=== PATIENT | male | born 1960 | race Two or more races ===

== ENCOUNTER 2019-02-15 18:43 | Observation (INO) | payer OTHER ==
[2019-02-15] MEDS ORDERED: SODIUM CHLORIDE 0.9% 1,000 ML IV STA ×2 (19:02→20:31)
[2019-02-15] MEDS ORDERED: DICYCLOMINE 10 MG/ML 2 ML AMP IM STA (19:02)
[2019-02-15] MEDS ORDERED: ONDANSETRON 4 MG/2 ML VIAL IVP STA (19:02)
[2019-02-15] MEDS ORDERED: PANTOPRAZOLE 40 MG/10 ML VIAL IVP STA (19:02)
--- NOTE | 2019-02-15 19:06 | ED ---
Abdominal Pain HPI - General Chief Complaint: Abdominal Pain Stated Complaint: HEARTBURN, NAUSEA Time Seen by Provider: 02/15/19 18:54 Source: patient Mode of arrival: ambulatory Limitations: no limitations - History of Present Illness Initial Comments: Patient is a 58-year-old male with history of diabetes is presenting to emergency Department with chief complaint of abdominal pain nausea vomiting. Patient reports over the last 2 days he has developed an epigastric, burning abdominal pain that appears to be exacerbated postprandially. Patient reports since last night he developed constant nausea with multiple episodes of vomiting but no diarrhea. Patient denies any increased urgency or frequency or dysuria. Patient denies hematuria, hematochezia or melena. Patient reports he was scheduled to have a colonoscopy 1 year ago but never could make the appointment. Patient denies any night sweats or fevers or chills. Patient reports he rece ntly lost his insurance and has not been taken his diabetic medication. - Related Data Home Medications Medication Instructions Recorded Confirmed Atenolol 100 mg PO DAILY 02/15/19 02/15/19 Indomethacin [Indocin] 50 mg PO BID 02/15/19 02/15/19 Insulin Glargine,Hum.rec.anlog 48 unit SQ HS 02/15/19 02/15/19 [Basaglar Kwikpen U-100] Lisinopril 30 mg PO DAILY 02/15/19 02/15/19 Nortriptyline [Pamelor] 50 mg PO HS 02/15/19 02/15/19 Simvastatin [Zocor] 40 mg PO HS 02/15/19 02/15/19 cloNIDine HCL [Catapres] 0.2 mg PO BID 02/15/19 02/15/19 Allergies Allergy/AdvReac Type Severity Reaction Status Date / Time prochlorperazine AdvReac CONVULSIONS Verified 02/15/19 20:57 [From Compazine] Review of Systems ROS Statement: Those systems with pertinent positive or pertinent negative responses have been documented in the HPI. ROS Other: All systems not noted in ROS Statement are negative. Past Medical History Past Medical History: Diabetes Mellitus, GERD/Reflux, Hypertension History of Any Multi-Drug Resistant Organisms: None Reported Past Surgical History: No Surgical Hx Reported Past Psychological History: No Psychological Hx Reported Smoking Status: Current some day smoker Past Alcohol Use History: None Reported Past Drug Use History: Marijuana General Exam Limitations: no limitations General appearance: alert, in no apparent distress Head exam: Present: atraumatic, normocephalic, normal inspection Eye exam: Present: normal appearance Pupils: Present: normal accommodation ENT exam: Present: normal exam, mucous membranes moist Neck exam: Present: normal inspection, full ROM Respiratory exam: Present: normal lung sounds bilaterally Cardiovascular Exam: Present: normal rhythm, tachycardia, normal heart sounds GI/Abdominal exam: Present: soft, tenderness (Epigastric), normal bowel sounds. Absent: distended, guarding, rebound, rigid, other (Negative Neff sign, negative McBurney point tenderness.) Extremities exam: Present: normal inspection, full ROM, normal capillary refill Back exam: Present: normal inspection, full ROM. Absent: tenderness Neurological exam: Present: alert, oriented X3 Psychiatric exam: Present: normal affect, normal mood Skin exam: Present: warm, dry, intact, normal color Course Vital Signs 02/15/19 02/15/19 18:47 21:15 Temperature 98.2 F Pulse Rate 119 H 100 Respiratory 18 18 Rate Blood Pressure 187/101 164/77 O2 Sat by Pulse 95 95 Oximetry Medical Decision Making - Medical Decision Making Patient is a 58-year-old male with history of type 2 diabetes presenting to the emergency department with a chief complaint of nausea vomiting abdominal pain. On exam patient has mild to moderate epigastric tenderness, negative Neff or McBurney point tenderness. I suspect the epigastric pain to be related due to repetitive vomiting episodes. Patient has leukocytosis which I suspect to be s econdary to the vomiting. UA is indicative of plus for ketones and glucose. Patient appears to be dehydrated. 2 L of fluids given. Patient given Zofran initially which he states there was no improvement in nausea. Patient was given Phenergan additionally. Patient also given 4 mg of regular insulin. On reevaluation patient reports somewhat of an improvement although he is not able to keep any fluids down. Patient will be admitted for intractable nausea and vomiting. Case discussed with physician. Admitting physician is Dr. Casper. - Lab Data Result diagrams: 02/15/19 19:18 02/15/19 19:18 Lab Results 02/15/19 02/15/19 02/15/19 Range/Units 19:18 19:18 19:41 WBC 18.0 H (3.8-10.6) k/uL RBC 5.13 (4.30-5.90) m/uL Hgb 16.2 (13.0-17.5) gm/dL Hct 46.1 (39.0-53.0) % MCV 89.9 (80.0-100.0) fL MCH 31.6 (25.0-35.0) pg MCHC 35.2 (31.0-37.0) g/dL RDW 12.6 (11.5-15.5) % Plt Count 265 (150-450) k/uL Neutrophils % 93 % Lymphocytes % 4 % Monocytes % 3 % Eosinophils % 0 % Basophils % 0 % Neutrophils # 16.7 H (1.3-7.7) k/uL Lymphocytes # 0.6 L (1.0-4.8) k/uL Monocytes # 0.6 (0-1.0) k/uL Eosinophils # 0.0 (0-0.7) k/uL Basophils # 0.0 (0-0.2) k/uL Sodium 143 (137-145) mmol/L Potassium 3.8 (3.5-5.1) mmol/L Chloride 95 L (98-107) mmol/L Carbon Dioxide 30 (22-30) mmol/L Anion Gap 18 mmol/L BUN 14 (9-20) mg/dL Creatinine 0.92 (0.66-1.25) mg/dL Est GFR (CKD-EPI)AfAm >90 (>60 ml/min/1.73 sqM) Est GFR (CKD-EPI)NonAf >90 (>60 ml/min/1.73 sqM) Glucose 275 H (74-99) mg/dL Calcium 10.8 H (8.4-10.2) mg/dL Total Bilirubin 1.2 (0.2-1.3) mg/dL AST 20 (17-59) U/L ALT 27 (21-72) U/L Alkaline Phosphatase 126 (38-126) U/L Total Protein 8.5 H (6.3-8.2) g/dL Albumin 5.1 H (3.5-5.0) g/dL Amylase 46 (30-110) U/L Lipase 45 (23-300) U/L Urine Color Yellow Urine Appearance Cloudy (Clear) Urine pH 6.5 (5.0-8.0) Ur Specific [place] 1.023 (1.001-1.035) Urine Protein 2+ H (Negative) Urine Glucose (UA) 4+ H (Negative) Urine Ketones 4+ H (Negative) Urine Blood Negative (Negative) Urine Nitrite Negative (Negative) Urine Bilirubin Negative (Negative) Urine Urobilinogen <2.0 (<2.0) mg/dL Ur Leukocyte Esterase Negative (Negative) Urine RBC 1 (0-5) /hpf Urine WBC 1 (0-5) /hpf Ur Squamous Epith Cells 1 (0-4) /hpf Amorphous Sediment Rare H (None) /hpf Urine Bacteria Rare H (None) /hpf Urine Mucus Rare H (None) /hpf Disposition Clinical Impression: Intractable vomiting with nausea, Dehydration Disposition: ADMITTED IP TO THIS [facility] Condition: Stable Instructions (If sedation given, give patient instructions): Dehydration (ED) Additional Instructions: Patient will be admitted Is patient prescribed a controlled substance at d/c from ED?: No Referrals: Frederick Camejo MD [Primary Care Provider] - 1-2 days Time of Disposition: 22:08
[2019-02-15 19:26] LABS: Basophils % (A) 0 %; Eosinophils % (A) 0 %; HCT 46.1 % (39.0-53.0); HGB 16.2 gm/dL (13.0-17.5); Lymphocytes # (A) 0.6 k/uL (1.0-4.8); Lymphocytes % (A) 4 %; MCH 31.6 pg (25.0-35.0); MCHC 35.2 g/dL (31.0-37.0); MCV 89.9 fL (80.0-100.0); Mean Platelet Volume 7.9; Monocytes # (A) 0.6 k/uL (0-1.0); Monocytes % (A) 3 %; Neutrophils # (A) 16.7 k/uL (1.3-7.7); Neutrophils % (A) 93 %; Platelet Count 265 k/uL (150-450); RBC 5.13 m/uL (4.30-5.90); RDW 12.6 % (11.5-15.5)
[2019-02-15 19:37] LABS: ALT 27 U/L (21-72); AST 20 U/L (17-59); African American GFR (CKD) >90 (>60 ml/min/1.73 sqM); Albumin 5.1 g/dL (3.5-5.0); Alkaline Phosphatase 126 U/L (38-126); Amylase 46 U/L (30-110); Anion Gap 18 mmol/L; Blood Urea Nitrogen 14 mg/dL (9-20); Calcium 10.8 mg/dL (8.4-10.2); Carbon Dioxide 30 mmol/L (22-30); Chloride 95 mmol/L (98-107); Glucose 275 mg/dL (74-99); Non-African American GFR(CKD) >90 (>60 ml/min/1.73 sqM); Potassium 3.8 mmol/L (3.5-5.1); Sodium 143 mmol/L (137-145); Total Bilirubin 1.2 mg/dL (0.2-1.3); Total Protein 8.5 g/dL (6.3-8.2)
[2019-02-15 19:54] LABS: Amorphous Sediment,Urine Rare /hpf; Appearance,Urine Cloudy (Clear); Bacteria,Urine Rare /hpf; Bilirubin,Urine Negative (Negative); Blood,Urine Negative (Negative); Color,Urine Yellow; Glucose,Urine (UA) 4+ (Negative); Leukocyte Esterase,Urine Negative (Negative); Mucus,Urine Rare /hpf; Nitrite,Urine Negative (Negative); PH, Urine 6.5 (5.0-8.0); Protein,Urine 2+ (Negative); RBC,Urine 1 /hpf (0-5); Specific Gravity,Urine 1.023 (1.001-1.035); Squamous Epithelial Cell,Urine 1 /hpf (0-4); Urobilinogen,Urine <2.0 mg/dL (<2.0); WBC,Urine 1 /hpf (0-5)
[2019-02-15 19:55] LABS: Ketones,Urine 4+ (Negative)
[2019-02-15] MEDS ORDERED: INSULIN REGULAR 100 UNIT/ML VIAL IV ONE (20:10)
[2019-02-15] MEDS ORDERED: PROMETHAZINE INJ 25 MG in SODIUM CHLORIDE 0.9% 50 ML IVPB STA (20:11)
--- NOTE | 2019-02-15 21:18 | US ---
EXAMINATION TYPE: US abdomen limited DATE OF EXAM: 02/15/2019 COMPARISON: NONE CLINICAL HISTORY: epigastric/rug abd pain. N/V. No surgeries. EXAM MEASUREMENTS: Liver Length: 18.2 cm Gallbladder Wall: 0.2 cm CHD: 0.3 cm Right Kidney: 10.6 x 5.2 x 5.7 cm Very limited exam due to overlying bowel gas Pancreas: Obscured by bowel gas Liver: enlarged and coarse. Scanned through ribs due to overlying bowel gas. Left lobe not visuali zed due to overlying bowel gas. Gallbladder: Possible polyps, best seen supine at GB fold= 0.4 cm and 0.4 cm Evidence for sonographic Neff's sign: neg CBD: Obscured by overlying bowel gas Right Kidney: No hydronephrosis or masses seen IMPRESSION: No gallstones or dilated ducts. Possible small gallbladder polyps. These measure less giles n 5 mm. No dilated ducts.
[2019-02-15] MEDS ORDERED: MORPHINE SULFATE 4 MG/ML SYRINGE IV PRN (22:08)
[2019-02-15] MEDS ORDERED: NALOXONE 0.4 MG/ML 1 ML VIAL IV PRN (22:08)
[2019-02-15] MEDS: SODIUM CHLORIDE 0.9% 1,000 ML IV SCH (22:42)
[2019-02-15] MEDS: ONDANSETRON 4 MG/2 ML VIAL IVP SCH (23:49)
[2019-02-16] MEDS: SODIUM CHLORIDE 0.9% 1,000 ML IV SCH ×5 (03:32→23:46)
[2019-02-16] MEDS: ONDANSETRON 4 MG/2 ML VIAL IVP SCH ×4 (03:32→15:53)
[2019-02-16 06:57] LABS: Glucose,Whole Blood 142 mg/dL (75-99)
[2019-02-16] MEDS: HYDROcodone/APAP 5-325MG 1 EACH TAB PO PRN ×2 (07:44→13:18)
[2019-02-16 11:21] LABS: Glucose,Whole Blood 212 mg/dL (75-99)
[2019-02-16] MEDS: LISINOPRIL 10 MG TAB PO SCH (13:18)
[2019-02-16] MEDS: ATENOLOL 50 MG TAB PO SCH (13:19)
[2019-02-16] MEDS: IOPAMIDOL CONTRAST (ORAL USE) VIAL PO PRN ×2 (14:59→15:47)
[2019-02-16] MEDS: INDOMETHACIN 25 MG CAP PO SCH ×2 (15:48→20:45)
[2019-02-16] MEDS: cloNIDine HCL 0.2 MG TAB PO SCH ×2 (15:49→20:45)
[2019-02-16] MEDS ORDERED: ONDANSETRON 4 MG/2 ML VIAL IVP PRN (15:53)
--- NOTE | 2019-02-16 17:17 | CT ---
EXAMINATION TYPE: CT abdomen pelvis w con DATE OF EXAM: 02/16/2019 COMPARISON: None HISTORY: Fever and vomiting CT DLP: 1232.7 mGycm Automated exposure control for dose reduction was used. TECHNIQUE: Helical acquisition of images was performed from the lung bases through the pelvis. CONTRAST: Performed with Oral Contrast and with IV Contrast, patient injected with 100 mL of Isovue 300. FINDINGS: There is some patchy atelectasis at the lung bases. Heart size is normal. There is no pericardial eff usion. There is small hiatal hernia. Liver and spleen appear normal. Bile ducts are not dilated. There is no evidence of pancreatic mass. Gallbladder appears normal. Bile ducts are not dilated. There is no adrenal mass. Kidneys show satisfactory contrast opacification. There is no hydronephrosi s. Bladder distends smoothly. There is no inguinal hernia. There is no free fluid in the pelvis. Ther e is no mesenteric edema. There is no ascites or free air. Appendix appears normal. There is no sign of a bowel obstruction. Lumbar vertebra have normal alignment. There is degenerative disc space narro wing throughout the lumbar spine. There is no compression fracture. There is multilevel endplate spur formation and multilevel lumbar spinal stenosis. There is no retroperitoneal adenopathy. The delayed images show normal renal excretion. IMPRESSION: THERE IS SOME PATCHY ATELECTASIS AT THE LUNG BASES. NO ACUTE ABNORMALITY WITHIN THE ABDOMEN PELVIS. ENLARGED 6 CM PROSTATE. MULTILEVEL LUMBAR SPINAL STENOSIS.
[2019-02-16 17:20] LABS: Glucose,Whole Blood 197 mg/dL (75-99)
[2019-02-16 19:25] LABS: Glucose,Whole Blood 282 mg/dL (75-99)
[2019-02-16] MEDS: INSULIN ASPART (NovoLOG) 100 UNIT/ML VIAL SQ SCH (20:46)
[2019-02-16] MEDS ORDERED: INSULIN DETEMIR (LEVEMIR) 100 UNIT/ML SYR SQ SCH (21:00)
[2019-02-16] MEDS ORDERED: NORTRIPTYLINE 25 MG CAP PO SCH (21:00)
[2019-02-16] MEDS ORDERED: ATORVASTATIN 20 MG TAB PO SCH (21:00)
--- NOTE | 2019-02-16 22:37 | P.HPIM ---
History of Present Illness H&P Date: 02/16/19 Chief Complaint: Epigastric pain History of presenting complaint: This is a pleasant 58-year-old patient of Dr. Camejo. Chronic stable medical conditions include diabetes, GERD, hypertension, gout. Patient is a long- standing history of GERD and heartburn. Patient's symptoms have been progressively getting worse at least over last 5 months. Has increasing epigastric pain and heartburn going up in the chest. Often times she vomited feels acid eating the chest. Has not had EGD in the past. Dislocation patient had feeling of acid routine vomiting. Her 24 hours. Decided to come in. No fever no chills. Does a lot of discomfort in the epigastric area. Patient did drink significant alcohol the past stopped about 10 years ago. Patient also did chew tobacco in the past. Denies any black stools. No prior diagnosis of peptic ulcer disease. No loss of appetite. No weight loss. Patient does take indomethacin for his gout. Review of systems: GEN.: Tired EYES: None HEENT: None NECK: None RESPIRATORY: None CARDIOVASCULAR: No precordial pain GASTROINTESTINAL: As above GENITOURINARY: None MUSCULOSKELETAL: None LYMPHATICS: None HEMATOLOGICAL: None PSYCHIATRY: None NEUROLOGICAL: None Past medical history: Include Diabetes, GERD, hypertension, gout Social history: Patient drank alcohol for close to 22 years significant amount of stopped about 10 years ago. Marijuana occasionally. Lives alone. 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 Did chew tobacco in the past. Family history: Reviewed, noncontributory to presentation Physical examination: VITAL SIGNS: 98.2, 119, 18, 160/77, 95% on room air GENERAL: [BMI 30.1, laying in bed, not in distress. EYES: Pupils equal. Conjunctiva normal. HEENT: External appearance of nose and ears normal, oral cavity grossly normal. NECK: JVD not raised; masses not palpable. HEART: First and second heart sounds are normal; no edema. LUNGS: Respiratory rate normal; clear to auscultation. ABDOMEN: Soft, some epigastric tenderness, no guarding or rigidity, liver spleen not palpable, no masses palpable. PSYCH: Alert and oriented x3; mood and affect normal. NEUROLOGICAL: Cranial nerves grossly intact; no facial asymmetry, power and sensation grossly intact. LYMPHATICS: No lymph nodes palpable in the axilla and neck INVESTIGATIONS, reviewed in the clinical context: White count 18 hemoglobin 16.2 potassium 3.8 crit 0.9 to UA positive for protein glucose ketones Abdominal ultrasound showed possible gallbladder polyp. Otherwise unremarkable Assessment: -This is a patient long-standing history of progressive symptoms of GERD heartburn and vomiting with acidity going on for at least more progressive last 5 months. Now with episodes of vomiting with feeling acidity with epigastric pain. Patient does take indomethacin regularly and has had significant alcohol intake in the past. Patient is also overweight. Patient's symptoms are compatible with gastritis esophagitis severe reflux. No obvious evidence of infection. Abdominal examination is nonsurgical. -Diabetes mellitus type 2 chronically on insulin -Essential hypertension -Hyperlipidemia -Chronic gout Plan: Computed tomography scan of the abdomen with contrast will be ordered. Highly doubt this to be a surgical abdomen. We'll start the patient on PPI. Stopped today and said. Lifestyle measures was discussed at length with the patient. Patient will need outpatient EGD. Lovenox for DVT prophylaxis. Patient should be able to call tomorrow. Past Medical History Past Medical History: Diabetes Mellitus, GERD/Reflux, Hypertension History of Any Multi-Drug Resistant Organisms: None Reported Past Surgical History: No Surgical Hx Reported Past Psychological History: No Psychological Hx Reported Smoking Status: Current some day smoker Past Alcohol Use History: None Reported Past Drug Use History: Marijuana Medications and Allergies Home Medications Medication Instructions Recorded Confirmed Type Atenolol 100 mg PO DAILY 02/15/19 02/15/19 History Indomethacin [Indocin] 50 mg PO BID 02/15/19 02/15/19 History Insulin Glargine,Hum.rec.anlog 44 unit SQ HS 02/15/19 02/16/19 History [Basaglar Kwikpen U-100] Lisinopril 30 mg PO DAILY 02/15/19 02/15/19 History Nortriptyline [Pamelor] 50 mg PO HS 02/15/19 02/15/19 History Simvastatin [Zocor] 40 mg PO HS 02/15/19 02/15/19 History cloNIDine HCL [Catapres] 0.2 mg PO BID 02/15/19 02/15/19 History Allergies Allergy/AdvReac Type Severity Reaction Status Date / Time prochlorperazine AdvReac CONVULSIONS Verified 02/15/19 20:57 [From Compazine] Physical Exam Vitals: Vital Signs Temp Pulse Pulse Resp BP BP Pulse Ox 02/16/19 05:00 97.2 F L 99 18 146/73 94 L 02/15/19 23:00 97.8 F 97 18 151/80 93 L 02/15/19 22:45 100 18 179/90 96 02/15/19 21:15 100 18 164/77 95 02/15/19 18:47 98.2 F 119 H 18 187/101 95 Intake and Output 02/15/19 02/16/19 02/16/19 22:59 06:59 14:59 Intake Total 1400 Balance 1400 Intake: Intake, IV Titration 1400 Amount Sodium Chloride 0.9% 1, 1400 000 ml @ 200 mls/hr IV . Q5H [facility] Rx#:[id number] Other: Voiding Method Toilet Weight 95.254 kg Results CBC & Chem 7: 02/15/19 19:18 02/15/19 19:18 Labs: Abnormal Lab Results - Last 24 Hours (Table) 02/15/19 02/15/19 02/15/19 Range/Units 19:18 19:18 19:41 WBC 18.0 H (3.8-10.6) k/uL Neutrophils # 16.7 H (1.3-7.7) k/uL Lymphocytes # 0.6 L (1.0-4.8) k/uL Chloride 95 L (98-107) mmol/L Glucose 275 H (74-99) mg/dL POC Glucose (mg/dL) (75-99) mg/dL Calcium 10.8 H (8.4-10.2) mg/dL Total Protein 8.5 H (6.3-8.2) g/dL Albumin 5.1 H (3.5-5.0) g/dL Urine Protein 2+ H (Negative) Urine Glucose (UA) 4+ H (Negative) Urine Ketones 4+ H (Negative) Amorphous Sediment Rare H (None) /hpf Urine Bacteria Rare H (None) /hpf Urine Mucus Rare H (None) /hpf 02/16/19 Range/Units 06:55 WBC (3.8-10.6) k/uL Neutrophils # (1.3-7.7) k/uL Lymphocytes # (1.0-4.8) k/uL Chloride (98-107) mmol/L Glucose (74-99) mg/dL POC Glucose (mg/dL) 142 H (75-99) mg/dL Calcium (8.4-10.2) mg/dL Total Protein (6.3-8.2) g/dL Albumin (3.5-5.0) g/dL Urine Protein (Negative) Urine Glucose (UA) (Negative) Urine Ketones (Negative) Amorphous Sediment (None) /hpf Urine Bacteria (None) /hpf Urine Mucus (None) /hpf Thrombosis Risk Factor Assmnt - Choose All That Apply Any of the Below Risk Factors Present?: Yes Each Factor Represents 1 point: Age 41-60 years, Obesity (BMI >25) Other Risk Factors: No Other congenital or acquired thrombophilia - If yes, enter type in comment: No Thrombosis Risk Factor Assessment Total Risk Factor Score: 2 Thrombosis Risk Factor Assessment Level: Low Risk
[2019-02-16] MEDS: ENOXAPARIN 40 MG/0.4 ML SYRINGE SQ SCH (23:46)
[2019-02-16] MEDS: PANTOPRAZOLE 40 MG TABLET PO SCH (23:46)
[2019-02-17 00:46] LABS: Hemoglobin A1C 11.2 % (4.0-6.0)
[2019-02-17] MEDS: SODIUM CHLORIDE 0.9% 1,000 ML IV SCH ×2 (05:10→08:58)
[2019-02-17 06:47] LABS: Glucose,Whole Blood 76 mg/dL (75-99)
[2019-02-17] MEDS: INSULIN ASPART (NovoLOG) 100 UNIT/ML VIAL SQ SCH ×2 (06:51→13:14)
[2019-02-17] MEDS: PANTOPRAZOLE 40 MG TABLET PO SCH (07:36)
[2019-02-17] MEDS: LISINOPRIL 10 MG TAB PO SCH (07:36)
[2019-02-17] MEDS: ATENOLOL 50 MG TAB PO SCH (07:36)
[2019-02-17] MEDS: cloNIDine HCL 0.2 MG TAB PO SCH (07:36)
[2019-02-17] MEDS: ENOXAPARIN 40 MG/0.4 ML SYRINGE SQ SCH (07:37)
[2019-02-17 10:55] VITALS: BMI 30.1
[2019-02-17] MEDS: HYDROcodone/APAP 5-325MG 1 EACH TAB PO PRN (11:38)
[2019-02-17 11:52] LABS: Glucose,Whole Blood 243 mg/dL (75-99)
[2019-02-17 13:01] VITALS: BP 118/78; PULSE 59; RESP 16; TEMP 96.8
--- NOTE | 2019-02-17 21:36 | P.DS ---
Providers Date of admission: 02/15/19 21:38 Expected date of discharge: 02/17/19 Attending physician: Diony Casper Primary care physician: Frederick Bashir [facility] Course: Chief Complaint: Epigastric pain Hospital course: This is a pleasant 58-year-old patient of Dr. Camejo. Chronic stable medical conditions include diabetes, GERD, hypertension, gout. Patient is a long- standing history of GERD and heartburn. Patient's symptoms have been progressively getting worse at least over last 5 months. Has increasing epigastric pain and heartburn going up in the chest. Often times she vomited feels acid eating the chest. Has not had EGD in the past. Dislocation patient had feeling of acid routine vomiting. Her 24 hours. Decided to come in. No fever no chills. Does a lot of discomfort in the epigastric area. Patient did drink significant alcohol the past stopped about 10 years ago. Patient also did chew tobacco in the past. Denies any black stools. No prior diagnosis of peptic ulcer disease. No loss of appetite. No weight loss. Patient does take indomethacin for his gout.abdominal ultrasound was unremarkable. Computed tomography scan of the abdomen was unremarkable. Patient responded well to PPIs. Patient have an outpatient EGD. Care was discussed at length with the patient. NSAIDs are not to be taken. Physical examination: VITAL SIGNS: 98.2, 56, 17, 103/64, 95% room air GENERAL: [BMI 30.1, laying in bed, comfortable EYES: Pupils equal. Conjunctiva normal. HEENT: External appearance of nose and ears normal, oral cavity grossly normal. NECK: JVD not raised; masses not palpable. HEART: First and second heart sounds are normal; no edema. LUNGS: Respiratory rate normal; clear to auscultation. ABDOMEN: Soft, minimal-epigastric tenderness, no guarding or rigidity, liver spleen not palpable, no masses palpable. PSYCH: Alert and oriented x3; mood and affect normal. INVESTIGATIONS, reviewed in the clinical context: White count 18 hemoglobin 16.2 potassium 3.8 crit 0.9 to UA positive for protein glucose ketones Abdominal ultrasound showed possible gallbladder polyp. Otherwise unremarkable Assessment: -epigastric pain likely due to worsening of gastritis and/or esophagitis. Patient also on NSAIDs contributing. -Diabetes mellitus type 2 chronically on insulin -Essential hypertension -Hyperlipidemia -Chronic gout disposition: Home Patient Condition at Discharge: Stable Plan - Discharge Summary Discharge Rx Participant: No New Discharge Prescriptions: New Omeprazole [PriLOSEC] 20 mg PO AC-BID #60 cap Continue cloNIDine HCL [Catapres] 0.2 mg PO BID Simvastatin [Zocor] 40 mg PO HS Lisinopril 30 mg PO DAILY Atenolol 100 mg PO DAILY Insulin Glargine,Hum.rec.anlog [Basaglar Kwikpen U-100] 44 unit SQ HS Nortriptyline [Pamelor] 50 mg PO HS Discontinued Indomethacin [Indocin] 50 mg PO BID Discharge Medication List Atenolol 100 mg PO DAILY 02/15/19 [History] Insulin Glargine,Hum.rec.anlog [Basaglar Kwikpen U-100] 44 unit SQ HS 02/15/19 [History] Lisinopril 30 mg PO DAILY 02/15/19 [History] Nortriptyline [Pamelor] 50 mg PO HS 02/15/19 [History] Simvastatin [Zocor] 40 mg PO HS 02/15/19 [History] cloNIDine HCL [Catapres] 0.2 mg PO BID 02/15/19 [History] Omeprazole [PriLOSEC] 20 mg PO AC-BID #60 cap 02/17/19 [Rx] Follow up Appointment(s)/Referral(s): Frederick Camejo MD [Primary Care Provider] - 1-2 days Jamil Solis MD [STAFF PHYSICIAN] - 1 Week (EGD) Patient Instructions/Handouts: Dehydration (ED) Activity/Diet/Wound Care/Special Instructions: avoid NSAIDS Discharge Disposition: HOME SELF-CARE
== END 2019-02-17 13:15 | disposition home or self-care (01) ==
LOC: EC 18:43 → 3NMEDONC 21:38
PROVIDERS: ADMIT Hospitalist; ATTEND Hospitalist
DX: R10.13 Epigastric pain (principal); E11.9 Type 2 diabetes mellitus without complications; I10 Essential (primary) hypertension; M1A.9XX0 Chronic gout, unspecified, without tophus (tophi); R11.2 Nausea with vomiting, unspecified; K21.9 Gastro-esophageal reflux disease without esophagitis; F17.200 Nicotine dependence, unspecified, uncomplicated; E66.9 Obesity, unspecified; Z68.30 Body mass index [BMI] 30.0-30.9, adult; T38.3X6A Underdosing of insulin and oral hypoglycemic [antidiabetic] drugs, initial encounter; Z91.120 Patient's intentional underdosing of medication regimen due to financial hardship; Z79.899 Other long term (current) drug therapy; Z79.4 Long term (current) use of insulin; Z79.1 Long term (current) use of non-steroidal anti-inflammatories (NSAID); Z88.8 Allergy status to other drugs, medicaments and biological substances
CPT/HCPCS: 96376 ×2; 96361 ×3; 96372 ×3; 96365; 96366; 96375; 99285; 36415; 80053; 82150; 83690; 85025; 81001; 83036; 76705; 74177; G0378 ×3; J0500; J2550; J2405 ×2; J1650 ×2; C9113; Q9967

== ENCOUNTER 2020-05-26 18:53 | Inpatient (IN) | payer OTHER ==
[2020-05-26] MEDS ORDERED: SODIUM CHLORIDE 0.9% 2,000 ML IV STA (20:38)
[2020-05-26] MEDS ORDERED: ONDANSETRON 4 MG/2 ML VIAL IVP STA (20:38)
[2020-05-26] MEDS ORDERED: PANTOPRAZOLE 40 MG/10 ML VIAL IVP STA (20:38)
--- NOTE | 2020-05-26 20:54 | ED ---
Nausea/Vomiting/Diarrhea HPI - General Chief complaint: Nausea/Vomiting/Diarrhea Stated complaint: poss low blood sugar/blood in vomit Time Seen by Provider: 05/26/20 20:33 Source: patient, RN notes reviewed Mode of arrival: ambulatory Limitations: no limitations - History of Present Illness Initial comments: 59-year-old male presents emergency Department chief complaint abdominal pain, nausea vomiting. Patient states that this started last night states started with increased reflux. Patient states he is type II diabetic on insulin. Patient states she's had checked his blood sugar in 2 days. Patient states they started noticing spots of blood in his emesis. Patient went of upper abdominal pain. Patient states he had similar episode like this one year ago and felt that he had some peptic ulcer disease. Denies any melena or hematochezia. No fevers chills cough congestion denies any upper back pain, low back pain no dysuria - Related Data Home Medications Medication Instructions Recorded Confirmed Nortriptyline [Pamelor] 50 mg PO HS 02/15/19 02/15/19 Simvastatin [Zocor] 40 mg PO HS 02/15/19 02/15/19 cloNIDine HCL [Catapres] 0.2 mg PO BID 02/15/19 02/15/19 lisinopriL 30 mg PO DAILY 02/15/19 02/15/19 Allergies Allergy/AdvReac Type Severity Reaction Status Date / Time prochlorperazine AdvReac CONVULSIONS Verified 05/26/20 22:28 [From Compazine] Review of Systems ROS Statement: Those systems with pertinent positive or pertinent negative responses have been documented in the HPI. ROS Other: All systems not noted in ROS Statement are negative. Past Medical History Past Medical History: Diabetes Mellitus, GERD/Reflux, Hypertension History of Any Multi-Drug Resistant Organisms: None Reported Past Surgical History: No Surgical Hx Reported Past Psychological History: No Psychological Hx Reported Smoking Status: Never smoker Past Alcohol Use History: Occasional Past Drug Use History: Marijuana General Exam Limitations: no limitations General appearance: alert, in no apparent distress Head exam: Present: atraumatic, normocephalic, normal inspection Eye exam: Present: normal appearance, PERRL, EOMI. Absent: scleral icterus, conjunctival injection, periorbital swelling ENT exam: Present: normal oropharynx, mucous membranes dry, TM's normal bilaterally. Absent: mucous membranes moist Neck exam: Present: normal inspection. Absent: tenderness, meningismus, lymphadenopathy Respiratory exam: Present: normal lung sounds bilaterally. Absent: respiratory distress, wheezes, rales, rhonchi, stridor Cardiovascular Exam: Present: normal rhythm, tachycardia, normal heart sounds. Absent: systolic murmur, diastolic murmur, rubs, gallop, clicks GI/Abdominal exam: Present: soft, tenderness (Moderate epigastric), normal bowel sounds. Absent: distended, guarding, rebound, rigid Back exam: Absent: CVA tenderness (R), CVA tenderness (L) Neurological exam: Present: alert, oriented X3 Skin exam: Present: warm, dry, intact, normal color. Absent: rash Course Vital Signs 05/26/20 05/26/20 19:10 22:00 Temperature 97.5 F L Pulse Rate 135 H 120 H Respiratory 18 18 Rate Blood Pressure 142/90 199/102 O2 Sat by Pulse 96 90 L Oximetry Medical Decision Making - Medical Decision Making 51-year-old male presented for nausea vomiting. Patient's found to be hyperglycemia with a blood glucose of 699, with anion gap But not acidotic. PH is 7.4 to BE HIS BLOOD GAS. PATIENT DOES NOT HAVE ANY OBVIOUS SOURCE FOR INFECTION. CT ABDOMEN AND PELVIS WAS OBTAINED. PATIENT WILL BE ADMITTED FOR IV FLUID HYDRATION, INSULIN. - Lab Data Result diagrams: 05/26/20 20:47 05/26/20 20:47 Lab Results 05/26/20 05/26/20 05/26/20 Range/Units 20:47 20:47 20:47 WBC 22.6 H (3.8-10.6) k/uL RBC 5.98 H (4.30-5.90) m/uL Hgb 17.6 H (13.0-17.5) gm/dL Hct 54.7 H (39.0-53.0) % MCV 91.4 (80.0-100.0) fL MCH 29.4 (25.0-35.0) pg MCHC 32.2 (31.0-37.0) g/dL RDW 13.5 (11.5-15.5) % Plt Count 305 (150-450) k/uL MPV 10.0 Neutrophils % 93 % Lymphocytes % 3 % Monocytes % 3 % Eosinophils % 0 % Basophils % 0 % Neutrophils # 21.1 H (1.3-7.7) k/uL Lymphocytes # 0.7 L (1.0-4.8) k/uL Monocytes # 0.7 (0-1.0) k/uL Eosinophils # 0.0 (0-0.7) k/uL Basophils # 0.1 (0-0.2) k/uL VBG pH (7.31-7.41) VBG pCO2 (37-51) mmHg VBG HCO3 (24-28) mmol/L Sodium 137 (137-145) mmol/L Potassium 4.6 (3.5-5.1) mmol/L Chloride 84 L (98-107) mmol/L Carbon Dioxide 26 (22-30) mmol/L Anion Gap 27 mmol/L BUN 25 H (9-20) mg/dL Creatinine 1.25 (0.66-1.25) mg/dL Est GFR (CKD-EPI)AfAm 73 (>60 ml/min/1.73 sqM) Est GFR (CKD-EPI)NonAf 64 (>60 ml/min/1.73 sqM) Glucose 699 H* (74-99) mg/dL Plasma Lactic Acid Richard 7.5 H* (0.7-2.0) mmol/L Calcium 13.2 H* (8.4-10.2) mg/dL Total Bilirubin 1.3 (0.2-1.3) mg/dL AST 28 (17-59) U/L ALT 40 (4-49) U/L Alkaline Phosphatase 175 H (38-126) U/L Troponin I (0.000-0.034) ng/mL Total Protein 8.8 H (6.3-8.2) g/dL Albumin 5.3 H (3.5-5.0) g/dL Amylase <30 L (30-110) U/L Lipase 58 (23-300) U/L Acetone, Qual Positive (Negative) 05/26/20 05/26/20 Range/Units 20:47 20:47 WBC (3.8-10.6) k/uL RBC (4.30-5.90) m/uL Hgb (13.0-17.5) gm/dL Hct (39.0-53.0) % MCV (80.0-100.0) fL MCH (25.0-35.0) pg MCHC (31.0-37.0) g/dL RDW (11.5-15.5) % Plt Count (150-450) k/uL MPV Neutrophils % % Lymphocytes % % Monocytes % % Eosinophils % % Basophils % % Neutrophils # (1.3-7.7) k/uL Lymphocytes # (1.0-4.8) k/uL Monocytes # (0-1.0) k/uL Eosinophils # (0-0.7) k/uL Basophils # (0-0.2) k/uL VBG pH 7.43 H (7.31-7.41) VBG pCO2 39 (37-51) mmHg VBG HCO3 26 (24-28) mmol/L Sodium (137-145) mmol/L Potassium (3.5-5.1) mmol/L Chloride (98-107) mmol/L Carbon Dioxide (22-30) mmol/L Anion Gap mmol/L BUN (9-20) mg/dL Creatinine (0.66-1.25) mg/dL Est GFR (CKD-EPI)AfAm (>60 ml/min/1.73 sqM) Est GFR (CKD-EPI)NonAf (>60 ml/min/1.73 sqM) Glucose (74-99) mg/dL Plasma Lactic Acid Richard (0.7-2.0) mmol/L Calcium (8.4-10.2) mg/dL Total Bilirubin (0.2-1.3) mg/dL AST (17-59) U/L ALT (4-49) U/L Alkaline Phosphatase (38-126) U/L Troponin I <0.012 (0.000-0.034) ng/mL Total Protein (6.3-8.2) g/dL Albumin (3.5-5.0) g/dL Amylase (30-110) U/L Lipase (23-300) U/L Acetone, Qual (Negative) Critical Care Time Critical Care Time: Yes Total Critical Care Time: 35 Critical Care Time: Total 35 minutes were used for initial evaluation, ordering of labs EKG CT fluids and insulin. Patient started on insulin drip, fluid bolus was given. Patient's pH is 7.42, not acidotic, patient discussed with admitting physician. Disposition Clinical Impression: Intractable vomiting with nausea, Dehydration, Hyperglycemia due to type 2 diabetes mellitus, Lactic acidosis, Hyperosmolar hyperglycemic state (HHS), Leukocytosis Disposition: ADMITTED IP TO THIS HOSP Condition: Serious Referrals: Frederick Camejo MD [Primary Care Provider] - 1-2 days
[2020-05-26 21:05] LABS: VBG PH 7.43 (7.31-7.41)
[2020-05-26 21:07] LABS: Basophils # (A) 0.1 k/uL (0-0.2); Basophils % (A) 0 %; Eosinophils % (A) 0 %; HCT 54.7 % (39.0-53.0); HGB 17.6 gm/dL (13.0-17.5); Lymphocytes # (A) 0.7 k/uL (1.0-4.8); Lymphocytes % (A) 3 %; MCH 29.4 pg (25.0-35.0); MCHC 32.2 g/dL (31.0-37.0); MCV 91.4 fL (80.0-100.0); Monocytes # (A) 0.7 k/uL (0-1.0); Monocytes % (A) 3 %; Neutrophils # (A) 21.1 k/uL (1.3-7.7); Neutrophils % (A) 93 %; Platelet Count 305 k/uL (150-450); RBC 5.98 m/uL (4.30-5.90); RDW 13.5 % (11.5-15.5); WBC 22.6 k/uL (3.8-10.6)
[2020-05-26 21:11] LABS: AST 28 U/L (17-59); African American GFR (CKD) 73 (>60 ml/min/1.73 sqM); Albumin 5.3 g/dL (3.5-5.0); Alkaline Phosphatase 175 U/L (38-126); Anion Gap 27 mmol/L; Blood Urea Nitrogen 25 mg/dL (9-20); Carbon Dioxide 26 mmol/L (22-30); Chloride 84 mmol/L (98-107); Lipase 58 U/L (23-300); Non-African American GFR(CKD) 64 (>60 ml/min/1.73 sqM); Potassium 4.6 mmol/L (3.5-5.1); Sodium 137 mmol/L (137-145); Total Bilirubin 1.3 mg/dL (0.2-1.3); Total Protein 8.8 g/dL (6.3-8.2)
[2020-05-26 21:19] LABS: ALT 40 U/L (4-49)
[2020-05-26 21:23] LABS: Calcium 13.2 mg/dL (8.4-10.2); Glucose 699 mg/dL (74-99)
[2020-05-26] MEDS ORDERED: INSULIN REGULAR BOLUS (FROM DRIP BAG) IV ONE (21:23)
[2020-05-26 21:24] LABS: Amylase <30 U/L (30-110)
[2020-05-26] MEDS: SODIUM CHLORIDE 0.9% 1,000 ML IV SCH ×2 (21:43→22:52)
[2020-05-26] MEDS: INSULIN REGULAR 100 UNIT in SODIUM CHLORIDE 0.9% 100 ML IV SCH (21:43)
--- NOTE | 2020-05-26 22:21 | CT ---
EXAMINATION TYPE: CT abdomen pelvis w con DATE OF EXAM: 05/26/2020 COMPARISON: 02/16/2019 HISTORY: Vomiting blood. CT DLP: 1283.6 mGycm Automated exposure control for dose reduction was used. CONTRAST: Performed with IV Contrast, patient injected with 100ml mL of Isovue 300. Images obtained from the diaphragm to the floor the pelvis with IV contrast. Lung bases are clear of consolidation. There is diffuse fatty infiltration of the liver. Gallbladder is intact. Stomach is large. There is no focal defect. Spleen and pancreas appear normal. The bile du cts are not dilated. Pancreas is relatively small. There is no adrenal mass. Kidneys show satisfactory contrast opacification. There is no hydronephrosi s. Ureters are not dilated. There is no retroperitoneal adenopathy. Bladder distends smoothly. There is no inguinal hernia. There is no free fluid in the pelvis. There is no mesenteric edema. There is no ascites or free air. I see no evidence of a bowel obstructi on. There is no sign of thickened appendix. Appendix not clearly seen. The lumbar vertebra have normal alignment. There is mild disc space narrowing with spur formation. Th ere is no lumbar compression fracture. The bony pelvis is intact. The hip joints are intact. There is some degenerative cyst formation in the right acetabulum. Prostate measures 6.5 cm. IMPRESSION: Fatty infiltration of the liver. There is clearing of the atelectasis at the lung bases compared to o ld exam.
[2020-05-26] MEDS ORDERED: ONDANSETRON 4 MG/2 ML VIAL IVP PRN (22:36)
[2020-05-26] MEDS ORDERED: NALOXONE 0.4 MG/ML 1 ML VIAL IV PRN (22:36)
[2020-05-26] MEDS ORDERED: HYDROmorphone 0.5 MG/0.5 ML SYRINGE IVP STA (22:44)
[2020-05-26 22:56] LABS: Glucose,Whole Blood 503 mg/dL (75-99)
[2020-05-26 23:13] LABS: Appearance,Urine Clear (Clear); Bilirubin,Urine Negative (Negative); Blood,Urine Negative (Negative); Color,Urine Light Yellow; Glucose,Urine (UA) 4+ (Negative); Leukocyte Esterase,Urine Negative (Negative); Nitrite,Urine Negative (Negative); Protein,Urine Negative (Negative); Specific Gravity,Urine 1.031 (1.001-1.035); Urobilinogen,Urine <2.0 mg/dL (<2.0)
[2020-05-26] MEDS ORDERED: cloNIDine HCL 0.1 MG TAB PO STA (23:35)
[2020-05-26 23:48] LABS: Glucose,Whole Blood 532 mg/dL (75-99)
[2020-05-26 23:55] LABS: Ketones,Urine 2+ (Negative)
[2020-05-27 00:50] LABS: Glucose,Whole Blood 447 mg/dL (75-99)
[2020-05-27 01:58] LABS: Glucose,Whole Blood 332 mg/dL (75-99)
[2020-05-27 02:29] LABS: Glucose,Whole Blood 317 mg/dL (75-99)
[2020-05-27] MEDS ORDERED: D5-0.45% NACL WITH KCL 20MEQ/L 1,000 ML IV SCH (02:30)
[2020-05-27 03:11] LABS: Glucose,Whole Blood 332 mg/dL (75-99)
[2020-05-27 04:10] LABS: Glucose,Whole Blood 241 mg/dL (75-99)
[2020-05-27] MEDS: SODIUM CHLORIDE 0.9% 1,000 ML IV SCH ×4 (04:12→17:00)
[2020-05-27 04:55] LABS: Glucose,Whole Blood 195 mg/dL (75-99)
[2020-05-27 05:02] LABS: African American GFR (CKD) >90 (>60 ml/min/1.73 sqM); Anion Gap 11 mmol/L; Blood Urea Nitrogen 26 mg/dL (9-20); Calcium 11.1 mg/dL (8.4-10.2); Carbon Dioxide 31 mmol/L (22-30); Chloride 99 mmol/L (98-107); Glucose 248 mg/dL (74-99); Non-African American GFR(CKD) 78 (>60 ml/min/1.73 sqM); Phosphorus 2.7 mg/dL (2.5-4.5); Potassium 4.2 mmol/L (3.5-5.1); Sodium 141 mmol/L (137-145)
[2020-05-27 05:54] LABS: Glucose,Whole Blood 213 mg/dL (75-99)
[2020-05-27] MEDS: INSULIN REGULAR 100 UNIT in SODIUM CHLORIDE 0.9% 100 ML IV SCH (06:16)
[2020-05-27 07:01] LABS: Glucose,Whole Blood 138 mg/dL (75-99)
[2020-05-27 07:42] LABS: Glucose,Whole Blood 138 mg/dL (75-99)
[2020-05-27 08:28] LABS: African American GFR (CKD) >90 (>60 ml/min/1.73 sqM); Anion Gap 10 mmol/L; Blood Urea Nitrogen 24 mg/dL (9-20); Carbon Dioxide 31 mmol/L (22-30); Chloride 100 mmol/L (98-107); Glucose 151 mg/dL (74-99); Non-African American GFR(CKD) 88 (>60 ml/min/1.73 sqM); Potassium 4.6 mmol/L (3.5-5.1); Sodium 141 mmol/L (137-145)
[2020-05-27] MEDS: METOPROLOL TARTRATE 50 MG TAB PO SCH ×2 (08:48→20:28)
[2020-05-27] MEDS: PANTOPRAZOLE 40 MG/10 ML VIAL IV SCH ×2 (08:48→20:28)
[2020-05-27] MEDS: lisinopriL 10 MG TAB PO SCH (08:49)
[2020-05-27] MEDS: allopurinoL 100 MG TAB PO SCH (08:49)
[2020-05-27] MEDS: cloNIDine HCL 0.2 MG TAB PO SCH ×2 (08:49→20:28)
[2020-05-27] MEDS: INSULIN DETEMIR (LEVEMIR) 100 UNIT/ML SYR SQ SCH (09:53)
[2020-05-27] MEDS: ACETAMINOPHEN TAB 325 MG TAB PO PRN ×2 (11:29→20:31)
[2020-05-27 12:23] LABS: Glucose,Whole Blood 344 mg/dL (75-99)
[2020-05-27] MEDS: INSULIN ASPART (NovoLOG) 100 UNIT/ML VIAL SQ SCH ×3 (12:23→20:28)
[2020-05-27 12:29] LABS: African American GFR (CKD) >90 (>60 ml/min/1.73 sqM); Anion Gap 11 mmol/L; Blood Urea Nitrogen 23 mg/dL (9-20); Carbon Dioxide 26 mmol/L (22-30); Chloride 98 mmol/L (98-107); Glucose 282 mg/dL (74-99); Non-African American GFR(CKD) >90 (>60 ml/min/1.73 sqM); Potassium 4.3 mmol/L (3.5-5.1); Sodium 135 mmol/L (137-145)
[2020-05-27 14:29] VITALS: BMI 29.5
--- NOTE | 2020-05-27 14:47 | P.CNPUL ---
History of Present Illness Consult date: 05/27/20 Requesting physician: Diony Casper Reason for consult: other (Acute DKA.) Chief complaint: Abdominal pain and nausea and vomiting History of present illness: This is a 59-year-old white male with history of hypertension, depression, dyslipidemia, and diabetes. Patient has been very noncompliant with his medications for diabetes, not taking his insulin as he should. Presented to the ER yesterday with 2 days history of nausea vomiting and abdominal pain. Patient was noted to have significantly elevated blood sugar, positive ketones, and significant anion gap. Patient was admitted, placed on DKA protocol, given fluid boluses in the ER, and this consult was initiated. Patient denies any cough, no fever, no chills, no hemoptysis, denies any dysuria frequency or urgency. Patient clearly stated to me that he has not been taking his medications. His labs showed evidence of leukocytosis with WBC count of 22.6. Renal functioning is abnormal with a BUN of 25 creatinine of 1.25. Blood sugar was 699 on admission. Anion gap was 27. And ketones were positive. Coronal virus PCR was negative patient was admitted to the ICU, and I was asked to see him on consultation. This morning the patient seems to be doing much better, his anion gap has closed, patient will be placed on Levemir insulin and will be placed on NovoLog insulin subcu. According to sliding scale Review of Systems Constitutional: Negative. HEENT: Negative. Pulmonary: Negative. GI: As noted in HPI. Genitourinary: Negative. Musko skeletal: Negative. Endocrine: As noted in HPI. Hematologic: Negative. Neurologic: Negative. Psychiatric: Negative. Skin: Negative. Past Medical History Past Medical History: Diabetes Mellitus, GERD/Reflux, Hypertension History of Any Multi-Drug Resistant Organisms: None Reported Past Surgical History: No Surgical Hx Reported Past Anesthesia/Blood Transfusion Reactions: No Reported Reaction Past Psychological History: No Psychological Hx Reported Smoking Status: Never smoker Past Alcohol Use History: Occasional Past Drug Use History: Marijuana - Past Family History Father Additional Family Medical History / Comment(s): Bowel resection with colostomy. Mother Family Medical History: CVA/TIA, Hypertension, Myocardial Infarction (AR) Medications and Allergies Home Medications Medication Instructions Recorded Confirmed Type Nortriptyline [Pamelor] 50 mg PO HS 02/15/19 05/26/20 History Simvastatin [Zocor] 40 mg PO HS 02/15/19 05/26/20 History cloNIDine HCL [Catapres] 0.2 mg PO BID 02/15/19 05/26/20 History lisinopriL 30 mg PO DAILY 02/15/19 05/26/20 History Insulin Glargine,Hum.rec.anlog 29 unit SQ DAILY 05/26/20 05/26/20 History [Lantus Solostar] Metoprolol Tartrate [Lopressor] 50 mg PO BID 05/26/20 05/26/20 History allopurinoL [Zyloprim] 100 mg PO DAILY 05/26/20 05/26/20 History metFORMIN HCL [Glucophage] 1,000 mg PO BID 05/26/20 05/26/20 History Allergies Allergy/AdvReac Type Severity Reaction Status Date / Time prochlorperazine AdvReac CONVULSIONS Verified 05/26/20 22:28 [From Compazine] Physical Exam Vitals: Vital Signs Temp Pulse Resp BP Pulse Ox 05/27/20 13:00 81 18 136/82 92 L 05/27/20 12:00 98.3 F 80 18 123/81 92 L 05/27/20 11:00 80 14 156/98 93 L 05/27/20 10:00 77 22 166/96 94 L 05/27/20 09:00 100 14 167/99 96 05/27/20 08:00 98.8 F 98 13 163/87 95 05/27/20 07:00 98 11 L 160/97 94 L 05/27/20 06:00 101 H 21 148/97 92 L 05/27/20 05:00 96 15 148/93 94 L 05/27/20 04:00 98.1 F 98 12 139/85 93 L 05/27/20 03:00 102 H 18 150/89 95 05/27/20 02:00 106 H 14 162/99 94 L 05/27/20 01:00 115 H 7 L 175/103 93 L 05/27/20 00:16 98.3 F 116 H 16 167/102 92 L 05/26/20 23:58 97.5 F L 118 H 18 154/100 92 L 05/26/20 23:39 118 H 18 164/111 92 L 05/26/20 23:00 120 H 18 189/114 95 05/26/20 22:00 120 H 18 199/102 90 L 05/26/20 19:10 97.5 F L 135 H 18 142/90 96 Intake and Output 05/26/20 05/27/20 05/27/20 22:59 06:59 14:59 Intake Total 0985.751 1804.017 Output Total 775 Balance 845.498 4544.017 Intake: IV 800 D5-0.45% NaCl with KCl 300 20Meq/l 1,000 ml @ 150 mls/hr IV .Q6H40M [facility] Rx# :[id number] Sodium Chloride 0.9% 1, 500 000 ml @ 100 mls/hr IV . Q10H [facility] Rx#:[id number] Intake, IV Titration 1382.260 158.017 Amount D5-0.45% NaCl with KCl 300 150 20Meq/l 1,000 ml @ 150 mls/hr IV .Q6H40M [facility] Rx# :[id number] Insulin Regular 100 unit 82.260 8.017 In Sodium Chloride 0.9% 100 ml @ 0.1 UNITS/KG/HR 9.621 mls/hr IV .[id number] [facility] Rx#:[id number] Sodium Chloride 0.9% 1, 1000 000 ml @ 200 mls/hr IV . Q5H [facility] Rx#:[id number] Oral 100 Output: Urine 775 Other: Voiding Method Urinal Urinal # Voids 2 Weight 95.254 kg 93.2 kg Physical Exam: Revealed 59-year-old white male in no distress. Head: Atraumatic, normocephalic. HEENT:[Neck is supple.] [No neck masses.] [No thyromegaly.] [No JVD.] Chest: [Clear throughout, no crackles, no rhonchi, no wheezes.] Cardiac Exam: [Normal S1 and S2, no S3 gallop, no murmur.] Abdomen: [Soft, nontender, no megaly, no rebound, no guarding, normal bowel sounds.] Extremities: [No clubbing, no edema, no cyanosis.] Neurological Exam: [No focal neurologic deficit.] Alert and oriented 3. Psychiatric: Normal mood, affect and normal mental status examination. Skin: No rashes. Results - Laboratory Findings CBC and BMP: 05/26/20 20:47 05/27/20 12:02 Abnormal lab findings: Abnormal Labs 05/26/20 05/26/20 05/26/20 20:47 20:47 20:47 WBC 22.6 H RBC 5.98 H Hgb 17.6 H Hct 54.7 H Neutrophils # 21.1 H Lymphocytes # 0.7 L VBG pH Sodium Chloride 84 L Carbon Dioxide BUN 25 H Glucose 699 H* POC Glucose (mg/dL) Osmolality Plasma Lactic Acid Richard Calcium 13.2 H* Alkaline Phosphatase 175 H Total Protein 8.8 H Albumin 5.3 H Amylase <30 L Urine Glucose (UA) 4+ H Urine Ketones 2+ H 05/26/20 05/26/20 05/26/20 20:47 20:47 20:47 WBC RBC Hgb Hct Neutrophils # Lymphocytes # VBG pH 7.43 H Sodium Chloride Carbon Dioxide BUN Glucose POC Glucose (mg/dL) Osmolality 329 H* Plasma Lactic Acid Richard 7.5 H* Calcium Alkaline Phosphatase Total Protein Albumin Amylase Urine Glucose (UA) Urine Ketones 05/26/20 05/26/20 05/27/20 22:53 23:47 00:25 WBC RBC Hgb Hct Neutrophils # Lymphocytes # VBG pH Sodium Chloride Carbon Dioxide BUN Glucose POC Glucose (mg/dL) 503 H 532 H Osmolality Plasma Lactic Acid Richard 2.3 H* Calcium Alkaline Phosphatase Total Protein Albumin Amylase Urine Glucose (UA) Urine Ketones 05/27/20 05/27/20 05/27/20 00:47 01:56 02:27 WBC RBC Hgb Hct Neutrophils # Lymphocytes # VBG pH Sodium Chloride Carbon Dioxide BUN Glucose POC Glucose (mg/dL) 447 H 332 H 317 H Osmolality Plasma Lactic Acid Richard Calcium Alkaline Phosphatase Total Protein Albumin Amylase Urine Glucose (UA) Urine Ketones 05/27/20 05/27/20 05/27/20 03:09 03:59 04:09 WBC RBC Hgb Hct Neutrophils # Lymphocytes # VBG pH Sodium Chloride Carbon Dioxide 31 H BUN 26 H Glucose 248 H POC Glucose (mg/dL) 332 H 241 H Osmolality Plasma Lactic Acid Richard Calcium 11.1 H Alkaline Phosphatase Total Protein Albumin Amylase Urine Glucose (UA) Urine Ketones 05/27/20 05/27/20 05/27/20 04:54 05:52 07:00 WBC RBC Hgb Hct Neutrophils # Lymphocytes # VBG pH Sodium Chloride Carbon Dioxide BUN Glucose POC Glucose (mg/dL) 195 H 213 H 138 H Osmolality Plasma Lactic Acid Richard Calcium Alkaline Phosphatase Total Protein Albumin Amylase Urine Glucose (UA) Urine Ketones 05/27/20 05/27/20 05/27/20 07:41 07:53 12:02 WBC RBC Hgb Hct Neutrophils # Lymphocytes # VBG pH Sodium 135 L Chloride Carbon Dioxide 31 H BUN 24 H 23 H Glucose 151 H 282 H POC Glucose (mg/dL) 138 H Osmolality Plasma Lactic Acid Richard Calcium Alkaline Phosphatase Total Protein Albumin Amylase Urine Glucose (UA) Urine Ketones 05/27/20 12:21 WBC RBC Hgb Hct Neutrophils # Lymphocytes # VBG pH Sodium Chloride Carbon Dioxide BUN Glucose POC Glucose (mg/dL) 344 H Osmolality Plasma Lactic Acid Richard Calcium Alkaline Phosphatase Total Protein Albumin Amylase Urine Glucose (UA) Urine Ketones - Diagnostic Findings Additional studies: CT abdomen and pelvis showed fatty infiltration of the liver otherwise unremarkable. Assessment and Plan Assessment: Impression: Acute diabetic ketoacidosis. Secondary to noncompliance with insulin. Noncompliance with his medications. Benign essential hypertension. Dyslipidemia. Fatty infiltration of the liver. GERD without esophagitis. Recommendation: Transition patient to Levemir insulin Transition patient to NovoLog subcu insulin Continue IV fluids Advanced diet as tolerated/ADA diet. Consider transfusing the patient out of the ICU to a regular medical floor today. Possible discharge planning in the next 24 hours. Patient advised to be compliant with his medications/insulin at home. Time with Patient: Greater than 30
[2020-05-27 15:09] LABS: Hemoglobin A1C 13.4 % (4.0-6.0)
[2020-05-27 16:55] LABS: Glucose,Whole Blood 239 mg/dL (75-99)
[2020-05-27 19:43] LABS: Glucose,Whole Blood 269 mg/dL (75-99)
--- NOTE | 2020-05-27 20:24 | P.HPIM ---
History of Present Illness H&P Date: 05/27/20 Chief Complaint: Nausea vomiting History of presenting complaint: This is a pleasant 59-year-old patient who follows with Radha Gill. Chronic stable medical conditions include GERD, hypertension, hyperuricemia. 4 days ago patient was in [place] with his girlfriend. They're to fall out and he did this agreement. 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 For 3 days he did not have insulin and Eating on the way in [facility]. When he came back home he found that his son was in [facility]. And that messed up his yard. On Tuesday night patient started vomiting and vomited all night. And yesterday decided to come down to the ER. Patient is found to have a blood glucose of 699, and found to be in diabetic ket oacidosis. Patient does take Lantus at home. Patient is put on IV fluids insulin drip admitted to the ICU. The DKA This morning patient feels a bit better. No decrease appetite. No fever no chills. No respiratory urinary symptoms. Was taken off insulin drip this morning. Review of systems: GEN.: Tired EYES: None HEENT: None NECK: None RESPIRATORY: None CARDIOVASCULAR: None GASTROINTESTINAL: As above GENITOURINARY: None MUSCULOSKELETAL: None LYMPHATICS: None HEMATOLOGICAL: None PSYCHIATRY: Anxious] NEUROLOGICAL: None Past medical history to include: Diabetes, GERD, hypertension, hyperlipidemia Social history: Patient lives alone. 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 No smoking. Alcohol occasionally. Sometimes in the past. Physical examination: VITAL SIGNS: 97.5, 135, 18, 142/90, 90% room air-upon presentation GENERAL: BMI 29.5, reclining in bed, tired awake. EYES: Pupils equal. Conjunctiva normal. HEENT: External appearance of nose and ears normal, oral cavity grossly normal. NECK: JVD not raised; masses not palpable. HEART: First and second heart sounds are normal; no edema. LUNGS: Respiratory rate normal; clear to auscultation. ABDOMEN: Soft, nontender, liver spleen not palpable, no masses palpable. PSYCH: Alert and oriented x3; mood and affect slightly anxiousl. NEUROLOGICAL: Cranial nerves grossly intact; no facial asymmetry, power and sensation grossly intact. LYMPHATICS: No lymph nodes palpable in the axilla and neck INVESTIGATIONS, reviewed in the clinical context: May 27: Potassium 4.3 creatinine 0.83 blood glucose 22 Admitting exam: WBC 22.6 hemoglobin 17.6 platelets 305 potassium 4.6 creatinine 1.25 blood glucose 699 serum osmolality 329 lactic acid 7.5 calcium 13.2 Serum acetone positive Coronavirus [PCF] not detected EKG tracing personally reviewed by me-normal sinus rhythm with nonspecific ST segment changes Computed tomography scan of the abdomen pelvis with contrast: Fatty infiltration of the liver. Assessment and plan: -Diabetic ketoacidosis. This is a patient was not taking his insulin for 3 days by his been driving up from [place]. Started on IV fluids and insulin drip. -Diabetes mellitus type 2, chronically on insulin, uncontrolled with hyperglycemia -Essential hypertension, continue with Lopressor lisinopril, Catapres -Hyperlipidemia continue with Zocor -Hyperuricemia continues allopurinol -Lactic acidosis type II from underlying DKA This morning patient was taken off insulin drip. Put on Levemir 50 units. Accu-Cheks are being followed. Home medications were resumed. Encouraged to increase oral intake. Lovenox for DVT prophylaxis. We will also add aspirin 81 mg a day for GI prophylaxis. Past Medical History Past Medical History: Diabetes Mellitus, GERD/Reflux, Hypertension History of Any Multi-Drug Resistant Organisms: None Reported Past Surgical History: No Surgical Hx Reported Past Anesthesia/Blood Transfusion Reactions: No Reported Reaction Past Psychological History: No Psychological Hx Reported Smoking Status: Never smoker Past Alcohol Use History: Occasional Past Drug Use History: Marijuana - Past Family History Father Additional Family Medical History / Comment(s): Bowel resection with colostomy. Mother Family Medical History: CVA/TIA, Hypertension, Myocardial Infarction (CA) Medications and Allergies Home Medications Medication Instructions Recorded Confirmed Type Nortriptyline [Pamelor] 50 mg PO HS 02/15/19 05/26/20 History Simvastatin [Zocor] 40 mg PO HS 02/15/19 05/26/20 History cloNIDine HCL [Catapres] 0.2 mg PO BID 02/15/19 05/26/20 History lisinopriL 30 mg PO DAILY 02/15/19 05/26/20 History Insulin Glargine,Hum.rec.anlog 29 unit SQ DAILY 05/26/20 05/26/20 History [Lantus Solostar] Metoprolol Tartrate [Lopressor] 50 mg PO BID 05/26/20 05/26/20 History allopurinoL [Zyloprim] 100 mg PO DAILY 05/26/20 05/26/20 History metFORMIN HCL [Glucophage] 1,000 mg PO BID 05/26/20 05/26/20 History Allergies Allergy/AdvReac Type Severity Reaction Status Date / Time prochlorperazine AdvReac CONVULSIONS Verified 05/26/20 22:28 [From Compazine] Physical Exam Vitals: Vital Signs Temp Pulse Resp BP Pulse Ox 05/27/20 09:00 100 14 167/99 96 05/27/20 08:00 98.8 F 98 13 163/87 95 05/27/20 07:00 98 11 L 160/97 94 L 05/27/20 06:00 101 H 21 148/97 92 L 05/27/20 05:00 96 15 148/93 94 L 05/27/20 04:00 98.1 F 98 12 139/85 93 L 05/27/20 03:00 102 H 18 150/89 95 05/27/20 02:00 106 H 14 162/99 94 L 05/27/20 01:00 115 H 7 L 175/103 93 L 05/27/20 00:16 98.3 F 116 H 16 167/102 92 L 05/26/20 23:58 97.5 F L 118 H 18 154/100 92 L 05/26/20 23:39 118 H 18 164/111 92 L 05/26/20 23:00 120 H 18 189/114 95 05/26/20 22:00 120 H 18 199/102 90 L 05/26/20 19:10 97.5 F L 135 H 18 142/90 96 Intake and Output 05/26/20 05/27/20 05/27/20 22:59 06:59 14:59 Intake Total 1382.260 558.017 Output Total 775 Balance 607.260 558.017 Intake: IV 300 D5-0.45% NaCl with KCl 300 20Meq/l 1,000 ml @ 150 mls/hr IV .Q6H40M [facility] Rx# :[id number] Intake, IV Titration 1382.260 158.017 Amount D5-0.45% NaCl with KCl 300 150 20Meq/l 1,000 ml @ 150 mls/hr IV .Q6H40M [facility] Rx# :[id number] Insulin Regular 100 unit 82.260 8.017 In Sodium Chloride 0.9% 100 ml @ 0.1 UNITS/KG/HR 9.621 mls/hr IV .[id number] [facility] Rx#:[id number] Sodium Chloride 0.9% 1, 1000 000 ml @ 200 mls/hr IV . Q5H [facility] Rx#:[id number] Oral 100 Output: Urine 775 Other: Voiding Method Urinal Urinal Weight 95.254 kg 93.2 kg Results CBC & Chem 7: 05/26/20 20:47 05/27/20 12:02 Labs: Abnormal Lab Results - Last 24 Hours (Table) 05/26/20 05/26/20 05/26/20 Range/Units 20:47 20:47 20:47 WBC 22.6 H (3.8-10.6) k/uL RBC 5.98 H (4.30-5.90) m/uL Hgb 17.6 H (13.0-17.5) gm/dL Hct 54.7 H (39.0-53.0) % Neutrophils # 21.1 H (1.3-7.7) k/uL Lymphocytes # 0.7 L (1.0-4.8) k/uL VBG pH (7.31-7.41) Chloride 84 L (98-107) mmol/L Carbon Dioxide (22-30) mmol/L BUN 25 H (9-20) mg/dL Glucose 699 H* (74-99) mg/dL POC Glucose (mg/dL) (75-99) mg/dL Osmolality (280-301) mosm/kg Plasma Lactic Acid Richard (0.7-2.0) mmol/L Calcium 13.2 H* (8.4-10.2) mg/dL Alkaline Phosphatase 175 H (38-126) U/L Total Protein 8.8 H (6.3-8.2) g/dL Albumin 5.3 H (3.5-5.0) g/dL Amylase <30 L (30-110) U/L Urine Glucose (UA) 4+ H (Negative) Urine Ketones 2+ H (Negative) 05/26/20 05/26/20 05/26/20 Range/Units 20:47 20:47 20:47 WBC (3.8-10.6) k/uL RBC (4.30-5.90) m/uL Hgb (13.0-17.5) gm/dL Hct (39.0-53.0) % Neutrophils # (1.3-7.7) k/uL Lymphocytes # (1.0-4.8) k/uL VBG pH 7.43 H (7.31-7.41) Chloride (98-107) mmol/L Carbon Dioxide (22-30) mmol/L BUN (9-20) mg/dL Glucose (74-99) mg/dL POC Glucose (mg/dL) (75-99) mg/dL Osmolality 329 H* (280-301) mosm/kg Plasma Lactic Acid Richard 7.5 H* (0.7-2.0) mmol/L Calcium (8.4-10.2) mg/dL Alkaline Phosphatase (38-126) U/L Total Protein (6.3-8.2) g/dL Albumin (3.5-5.0) g/dL Amylase (30-110) U/L Urine Glucose (UA) (Negative) Urine Ketones (Negative) 05/26/20 05/26/20 05/27/20 Range/Units 22:53 23:47 00:25 WBC (3.8-10.6) k/uL RBC (4.30-5.90) m/uL Hgb (13.0-17.5) gm/dL Hct (39.0-53.0) % Neutrophils # (1.3-7.7) k/uL Lymphocytes # (1.0-4.8) k/uL VBG pH (7.31-7.41) Chloride (98-107) mmol/L Carbon Dioxide (22-30) mmol/L BUN (9-20) mg/dL Glucose (74-99) mg/dL POC Glucose (mg/dL) 503 H 532 H (75-99) mg/dL Osmolality (280-301) mosm/kg Plasma Lactic Acid Richard 2.3 H* (0.7-2.0) mmol/L Calcium (8.4-10.2) mg/dL Alkaline Phosphatase (38-126) U/L Total Protein (6.3-8.2) g/dL Albumin (3.5-5.0) g/dL Amylase (30-110) U/L Urine Glucose (UA) (Negative) Urine Ketones (Negative) 05/27/20 05/27/20 05/27/20 Range/Units 00:47 01:56 02:27 WBC (3.8-10.6) k/uL RBC (4.30-5.90) m/uL Hgb (13.0-17.5) gm/dL Hct (39.0-53.0) % Neutrophils # (1.3-7.7) k/uL Lymphocytes # (1.0-4.8) k/uL VBG pH (7.31-7.41) Chloride (98-107) mmol/L Carbon Dioxide (22-30) mmol/L BUN (9-20) mg/dL Glucose (74-99) mg/dL POC Glucose (mg/dL) 447 H 332 H 317 H (75-99) mg/dL Osmolality (280-301) mosm/kg Plasma Lactic Acid Richard (0.7-2.0) mmol/L Calcium (8.4-10.2) mg/dL Alkaline Phosphatase (38-126) U/L Total Protein (6.3-8.2) g/dL Albumin (3.5-5.0) g/dL Amylase (30-110) U/L Urine Glucose (UA) (Negative) Urine Ketones (Negative) 05/27/20 05/27/20 05/27/20 Range/Units 03:09 03:59 04:09 WBC (3.8-10.6) k/uL RBC (4.30-5.90) m/uL Hgb (13.0-17.5) gm/dL Hct (39.0-53.0) % Neutrophils # (1.3-7.7) k/uL Lymphocytes # (1.0-4.8) k/uL VBG pH (7.31-7.41) Chloride (98-107) mmol/L Carbon Dioxide 31 H (22-30) mmol/L BUN 26 H (9-20) mg/dL Glucose 248 H (74-99) mg/dL POC Glucose (mg/dL) 332 H 241 H (75-99) mg/dL Osmolality (280-301) mosm/kg Plasma Lactic Acid Richard (0.7-2.0) mmol/L Calcium 11.1 H (8.4-10.2) mg/dL Alkaline Phosphatase (38-126) U/L Total Protein (6.3-8.2) g/dL Albumin (3.5-5.0) g/dL Amylase (30-110) U/L Urine Glucose (UA) (Negative) Urine Ketones (Negative) 05/27/20 05/27/20 05/27/20 Range/Units 04:54 05:52 07:00 WBC (3.8-10.6) k/uL RBC (4.30-5.90) m/uL Hgb (13.0-17.5) gm/dL Hct (39.0-53.0) % Neutrophils # (1.3-7.7) k/uL Lymphocytes # (1.0-4.8) k/uL VBG pH (7.31-7.41) Chloride (98-107) mmol/L Carbon Dioxide (22-30) mmol/L BUN (9-20) mg/dL Glucose (74-99) mg/dL POC Glucose (mg/dL) 195 H 213 H 138 H (75-99) mg/dL Osmolality (280-301) mosm/kg Plasma Lactic Acid Richard (0.7-2.0) mmol/L Calcium (8.4-10.2) mg/dL Alkaline Phosphatase (38-126) U/L Total Protein (6.3-8.2) g/dL Albumin (3.5-5.0) g/dL Amylase (30-110) U/L Urine Glucose (UA) (Negative) Urine Ketones (Negative) 05/27/20 05/27/20 Range/Units 07:41 07:53 WBC (3.8-10.6) k/uL RBC (4.30-5.90) m/uL Hgb (13.0-17.5) gm/dL Hct (39.0-53.0) % Neutrophils # (1.3-7.7) k/uL Lymphocytes # (1.0-4.8) k/uL VBG pH (7.31-7.41) Chloride (98-107) mmol/L Carbon Dioxide 31 H (22-30) mmol/L BUN 24 H (9-20) mg/dL Glucose 151 H (74-99) mg/dL POC Glucose (mg/dL) 138 H (75-99) mg/dL Osmolality (280-301) mosm/kg Plasma Lactic Acid Richard (0.7-2.0) mmol/L Calcium (8.4-10.2) mg/dL Alkaline Phosphatase (38-126) U/L Total Protein (6.3-8.2) g/dL Albumin (3.5-5.0) g/dL Amylase (30-110) U/L Urine Glucose (UA) (Negative) Urine Ketones (Negative) Thrombosis Risk Factor Assmnt - Choose All That Apply Any of the Below Risk Factors Present?: Yes Each Factor Represents 1 point: Age 41-60 years, Medical pt on bed rest, Obesity (BMI >25) Other Risk Factors: No Other congenital or acquired thrombophilia - If yes, enter type in comment: No Thrombosis Risk Factor Assessment Total Risk Factor Score: 3 Thrombosis Risk Factor Assessment Level: Moderate Risk
[2020-05-27] MEDS ORDERED: ENOXAPARIN 40 MG/0.4 ML SYRINGE SQ SCH (20:30)
[2020-05-27] MEDS ORDERED: NORTRIPTYLINE 25 MG CAP PO SCH (21:00)
[2020-05-27] MEDS ORDERED: ATORVASTATIN 20 MG TAB PO SCH (21:00)
[2020-05-27] MEDS ORDERED: INSULIN DETEMIR (LEVEMIR) 100 UNIT/ML SYR SQ SCH (21:00)
--- NOTE | 2020-05-27 23:45 | XR ---
EXAMINATION TYPE: XR abdomen acute w cxr DATE OF EXAM: 05/27/2020 COMPARISON: NONE HISTORY: Abdominal pain TECHNIQUE: 5 views FINDINGS: There is no heart failure nor confluent pneumonic infiltrate. Costophrenic angles are clear . There is small linear density left lung base consistent with atelectasis. There is no sign of intestinal obstruction or pneumoperitoneum. Pattern is normal. There is no sign o f a mass. There are no pathologic calcifications over the kidneys. IMPRESSION: Nonacute abdomen. Focal atelectasis medial left lower lobe. Normal heart.
[2020-05-28 00:53] LABS: Basophils % (A) 0 %; Eosinophils # (A) 0.1 k/uL (0-0.7); Eosinophils % (A) 0 %; HCT 41.6 % (39.0-53.0); Lymphocytes # (A) 1.5 k/uL (1.0-4.8); Lymphocytes % (A) 8 %; MCH 29.7 pg (25.0-35.0); MCHC 32.5 g/dL (31.0-37.0); MCV 91.4 fL (80.0-100.0); Monocytes # (A) 0.8 k/uL (0-1.0); Monocytes % (A) 5 %; Neutrophils # (A) 15.8 k/uL (1.3-7.7); Neutrophils % (A) 86 %; Platelet Count 183 k/uL (150-450); RBC 4.55 m/uL (4.30-5.90); RDW 13.6 % (11.5-15.5); WBC 18.4 k/uL (3.8-10.6)
[2020-05-28] MEDS ORDERED: MAG HYDROX/AL HYDROX/SIMETH 30 ML CUP PO PRN (00:59)
[2020-05-28 01:03] LABS: HGB 13.5 gm/dL (13.0-17.5)
[2020-05-28 01:10] LABS: ALT 18 U/L (4-49); AST 19 U/L (17-59); African American GFR (CKD) >90 (>60 ml/min/1.73 sqM); Albumin 3.6 g/dL (3.5-5.0); Alkaline Phosphatase 95 U/L (38-126); Amylase <30 U/L (30-110); Anion Gap 9 mmol/L; Blood Urea Nitrogen 22 mg/dL (9-20); Calcium 9.4 mg/dL (8.4-10.2); Carbon Dioxide 28 mmol/L (22-30); Chloride 97 mmol/L (98-107); Glucose 141 mg/dL (74-99); Lipase 61 U/L (23-300); Non-African American GFR(CKD) >90 (>60 ml/min/1.73 sqM); Sodium 134 mmol/L (137-145); Total Bilirubin 0.8 mg/dL (0.2-1.3); Total Protein 6.3 g/dL (6.3-8.2)
[2020-05-28 02:04] VITALS: PULSE 82; RESP 18
[2020-05-28 06:29] LABS: Glucose,Whole Blood 155 mg/dL (75-99)
[2020-05-28] MEDS: SODIUM CHLORIDE 0.9% 1,000 ML IV SCH (06:40)
[2020-05-28] MEDS: INSULIN ASPART (NovoLOG) 100 UNIT/ML VIAL SQ SCH (06:41)
[2020-05-28] MEDS: INSULIN DETEMIR (LEVEMIR) 100 UNIT/ML SYR SQ SCH (06:41)
[2020-05-28] MEDS: cloNIDine HCL 0.2 MG TAB PO SCH (08:22)
[2020-05-28] MEDS: lisinopriL 10 MG TAB PO SCH (08:23)
[2020-05-28] MEDS: allopurinoL 100 MG TAB PO SCH (08:23)
[2020-05-28] MEDS: METOPROLOL TARTRATE 50 MG TAB PO SCH (08:23)
[2020-05-28] MEDS: PANTOPRAZOLE 40 MG/10 ML VIAL IV SCH (08:23)
[2020-05-28 09:42] VITALS: BP 141/82; TEMP 98.6
--- NOTE | 2020-05-28 14:02 | P.PN ---
Subjective Progress Note Date: 05/28/20 Principal diagnosis: Acute DKA This is a 59-year-old white male with history of hypertension, depression, dyslipidemia, and diabetes. Patient has been very noncompliant with his medications for diabetes, not taking his insulin as he should. Presented to the ER yesterday with 2 days history of nausea vomiting and abdominal pain. Patient was noted to have significantly elevated blood sugar, positive ketones, and significant anion gap. Patient was admitted, placed on DKA protocol, given fluid boluses in the ER, and this consult was initiated. Patient denies any cough, no fever, no chills, no hemoptysis, denies any dysuria frequency or urgency. Patient clearly stated to me that he has not been taking his medications. His labs showed evidence of leukocytosis with WBC count of 22.6. Renal functioning is abnormal with a BUN of 25 creatinine of 1.25. Blood sugar was 699 on admission. Anion gap was 27. And ketones were positive. Coronal virus PCR was negative patient was admitted to the ICU, and I was asked to see him on consultation. This morning the patient seems to be doing much better, his anion gap has closed, patient will be placed on Levemir insulin and will be placed on NovoLog insulin subcu. According to sliding scale Reevaluated today on 05/28/2020, patient remains in the ICU, he is an overflow, remains on IV fluid at 100 mL/h, he is on room air, patient is doing great. He is on subcu insulin, asymptomatic, and I will clear the patient to be discharged home today. Objective - Vital Signs Vital signs: Vital Signs Temp 98.6 F 05/28/20 08:00 Pulse 82 05/28/20 02:00 Resp 18 05/28/20 08:00 BP 141/82 05/28/20 08:00 Pulse Ox 92 L 05/28/20 08:00 Intake & Output 05/27/20 05/28/20 05/28/20 18:59 06:59 18:59 Intake Total 2368.623 1524 Output Total 1650 Balance 1358.017 -450 Weight 93.2 kg 93.8 kg Intake: IV 1100 1200 D5-0.45% NaCl with KCl 300 20Meq/l 1,000 ml @ 150 mls/hr IV .Q6H40M [facility] Rx# :[id number] Sodium Chloride 0.9% 1, 800 1200 000 ml @ 100 mls/hr IV . Q10H [facility] Rx#:[id number] Intake, IV Titration 158.017 Amount D5-0.45% NaCl with KCl 150 20Meq/l 1,000 ml @ 150 mls/hr IV .Q6H40M [facility] Rx# :[id number] Insulin Regular 100 unit 8.017 In Sodium Chloride 0.9% 100 ml @ 0.1 UNITS/KG/HR 9.621 mls/hr IV .[id number] [facility] Rx#:[id number] Oral 100 Output: Urine 1650 Other: Voiding Method Urinal Urinal Urinal # Voids 2 - Exam Physical Exam: Revealed 59-year-old white male in no distress. Head: Atraumatic, normocephalic. HEENT:[Neck is supple.] [No neck masses.] [No thyromegaly.] [No JVD.] Chest: [Clear throughout, no crackles, no rhonchi, no wheezes.] Cardiac Exam: [Normal S1 and S2, no S3 gallop, no murmur.] Abdomen: [Soft, nontender, no megaly, no rebound, no guarding, normal bowel sounds.] Extremities: [No clubbing, no edema, no cyanosis.] Neurological Exam: [No focal neurologic deficit.] Alert and oriented 3. Psychiatric: Normal mood, affect and normal mental status examination. Skin: No rashes. - Labs CBC & Chem 7: 05/27/20 23:59 05/27/20 23:59 Labs: Abnormal Lab Results - Last 24 Hours (Table) 05/27/20 05/27/20 05/27/20 Range/Units 03:59 16:53 19:42 WBC (3.8-10.6) k/uL Neutrophils # (1.3-7.7) k/uL Sodium (137-145) mmol/L Chloride (98-107) mmol/L BUN (9-20) mg/dL Glucose (74-99) mg/dL POC Glucose (mg/dL) 239 H 269 H (75-99) mg/dL Hemoglobin A1c 13.4 H (4.0-6.0) % Amylase (30-110) U/L 05/27/20 05/27/20 05/28/20 Range/Units 23:59 23:59 06:28 WBC 18.4 H (3.8-10.6) k/uL Neutrophils # 15.8 H (1.3-7.7) k/uL Sodium 134 L (137-145) mmol/L Chloride 97 L (98-107) mmol/L BUN 22 H (9-20) mg/dL Glucose 141 H (74-99) mg/dL POC Glucose (mg/dL) 155 H (75-99) mg/dL Hemoglobin A1c (4.0-6.0) % Amylase <30 L (30-110) U/L Assessment and Plan Assessment: Impression: Acute diabetic ketoacidosis. Secondary to noncompliance with insulin. Noncompliance with his medications. Benign essential hypertension. Dyslipidemia. Fatty infiltration of the liver. GERD without esophagitis. Recommendation: Continue present subcu insulin Clear to be discharged home today. Patient was advised to be more compliant with his insulin and his other medications. We will sign off and see when necessary. Time with Patient: Less than 30
--- NOTE | 2020-05-29 19:10 | P.DS ---
Providers Date of admission: 05/26/20 23:21 Expected date of discharge: 05/29/20 Attending physician: Diony Casper Consults: 05/26/20 23:20 Consult Physician Stat Consulting Provider: Abigail Guillory Reason/Comments: ICU management Do you want consulting provider notified?: Yes Primary care physician: [facility] Course: Chief Complaint: Nausea vomiting History of presenting complaint: This is a pleasant 59-year-old patient who follows with Radha Gill. Chronic stable medical conditions include GERD, hypertension, hyperuricemia. 4 days ago patient was in [place] with his girlfriend. They're to fall out and he did this agreement. 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 For 3 days he did not have insulin and Eating on the way in [facility]. When he came back home he found that his son was in [facility]. And that messed up his yard. On Tuesday night patient started vomiting and vomited all night. And yesterday decided to come down to the ER. Patient is found to have a blood glucose of 699, and found to be in diabetic ketoacidosis. Patient does take Lantus at home. Patient is put on IV fluids insulin drip admitted to the ICU. DKA. Insulin drip. IV fluids. Today-doing well. Accu-Cheks a fall more reasonable. Importance of not missing insulin was discussed with the patient. He'll follow his Accu-Cheks and follow up with us family doctor Consultation: Dr. Guillory-radio host Past medical history to include: Diabetes, GERD, hypertension, hyperlipidemia Social history: Patient lives alone. 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 Alcohol occasionally. Sometimes in the past. Physical examination: VITAL SIGNS: 98.6, 82, 18, 141/82, 92% room air GENERAL: Sitting up in bed, comfortable EYES: Pupils equal. Conjunctiva normal. HEENT: External appearance of nose and ears normal, oral cavity grossly normal. NECK: JVD not raised; masses not palpable. HEART: First and second heart sounds are normal; no edema. LUNGS: Respiratory rate normal; clear to auscultation. ABDOMEN: Soft, nontender, liver spleen not palpable, no masses palpable. PSYCH: Alert and oriented x3; mood and affect normal. INVESTIGATIONS, reviewed in the clinical context: May 28: Accu-Chek 155 May 27: Potassium 4.3 creatinine 0.83 blood glucose 22 Admitting exam: WBC 22.6 hemoglobin 17.6 platelets 305 potassium 4.6 creatinine 1.25 blood glucose 699 serum osmolality 329 lactic acid 7.5 calcium 13.2 Serum acetone positive Coronavirus [PCF] not detected EKG tracing personally reviewed by me-normal sinus rhythm with nonspecific ST segment changes Computed tomography scan of the abdomen pelvis with contrast: Fatty infiltration of the liver. Assessment and plan: -Diabetic ketoacidosis. This is a patient was not taking his insulin for 3 days by his been driving up from [place]. Responded well -Diabetes mellitus type 2, chronically on insulin, uncontrolled with hyperglycemia -Essential hypertension, continue with Lopressor lisinopril, Catapres -Hyperlipidemia continue with Zocor -Hyperuricemia continues allopurinol -Lactic acidosis type II from underlying DKA Disposition: Home Patient Condition at Discharge: Serious Plan - Discharge Summary Discharge Rx Participant: Yes New Discharge Prescriptions: Continue cloNIDine HCL [Catapres] 0.2 mg PO BID Simvastatin [Zocor] 40 mg PO HS lisinopriL 30 mg PO DAILY Nortriptyline [Pamelor] 50 mg PO HS metFORMIN HCL [Glucophage] 1,000 mg PO BID allopurinoL [Zyloprim] 100 mg PO DAILY Metoprolol Tartrate [Lopressor] 50 mg PO BID Changed Insulin Glargine,Hum.rec.anlog [Lantus Solostar] 40 unit SQ DAILY #0 Discharge Medication List Nortriptyline [Pamelor] 50 mg PO HS 02/15/19 [History] Simvastatin [Zocor] 40 mg PO HS 02/15/19 [History] cloNIDine HCL [Catapres] 0.2 mg PO BID 02/15/19 [History] lisinopriL 30 mg PO DAILY 02/15/19 [History] Metoprolol Tartrate [Lopressor] 50 mg PO BID 05/26/20 [History] allopurinoL [Zyloprim] 100 mg PO DAILY 05/26/20 [History] metFORMIN HCL [Glucophage] 1,000 mg PO BID 05/26/20 [History] Insulin Glargine,Hum.rec.anlog [Lantus Solostar] 40 unit SQ DAILY #0 05/28/20 [Rx] Follow up Appointment(s)/Referral(s): [facility] [REFERRING] - As Needed Frederick Camejo MD [Primary Care Provider] - 1-2 days Patient Instructions/Handouts: Type 2 Diabetes in Adults: New Diagnosis (DC), Basic Carbohydrate Counting (DC) Activity/Diet/Wound Care/Special Instructions: Contact CM at [place] for indigent funds Discharge Disposition: HOME SELF-CARE
== END 2020-05-28 13:32 | disposition home or self-care (01) | DRG 639 ==
LOC: EC 18:53 → 2SICU 23:21
PROVIDERS: ADMIT Hospitalist; ATTEND Hospitalist
DX: E11.10 Type 2 diabetes mellitus with ketoacidosis without coma (principal); Z79.4 Long term (current) use of insulin; D72.829 Elevated white blood cell count, unspecified; E78.5 Hyperlipidemia, unspecified; E86.0 Dehydration; I10 Essential (primary) hypertension; K21.9 Gastro-esophageal reflux disease without esophagitis; K76.0 Fatty (change of) liver, not elsewhere classified; T38.3X6A Underdosing of insulin and oral hypoglycemic [antidiabetic] drugs, initial encounter; Z79.899 Other long term (current) drug therapy; Z82.49 Family history of ischemic heart disease and other diseases of the circulatory system; Z91.14 Patient's other noncompliance with medication regimen; E66.9 Obesity, unspecified; Z68.29 Body mass index [BMI] 29.0-29.9, adult; Z60.2 Problems related to living alone; Z20.822 Contact with and (suspected) exposure to COVID-19; Z82.3 Family history of stroke; Z83.79 Family history of other diseases of the digestive system
CPT/HCPCS: 36415; 74022; 74177; 80048; 80051; 80053; 81003; 82009; 82150; 82565; 82803; 82947; 83036; 83605; 83690; 83930; 83935; 84100; 84484; 84520; 85025; 87635; 93005; 96361; 96374; 96375; 99291

== ENCOUNTER → 2022-08-24 | Outpatient (CLI) | payer OTHER ==
--- NOTE | 2022-08-24 12:26 | XR ---
EXAMINATION TYPE: XR foot limited bilateral DATE OF EXAM: 08/24/2022 COMPARISON: NONE HISTORY: Pain TECHNIQUE: Three views are submitted. FINDINGS: The osseous structures are intact. There is no acute fracture or dislocation. There is severe narr owing with hallux valgus deformity the first MTP joint bilaterally. There is arthropathy of the tarsometatarsal junction bilaterally greater on the left. No erosive guerra ges. There is bilateral calcaneal small to moderate size spurs. Suspect arthropathy of the ankle mortise a nd joint space bilaterally greater on the right. IMPRESSION: 1. Bilateral severe first MTP joint arthropathy with hallux valgus deformity. 2. Bilateral tarsal metatarsal joint arthropathy greater on the left. Differential diagnosis would in clude osteoarthritis or gouty arthritis.
--- NOTE | 2022-08-24 12:27 | XR ---
EXAMINATION TYPE: XR knee limited bilateral DATE OF EXAM: 08/24/2022 COMPARISON: NONE HISTORY: Pain TECHNIQUE: Three views of each knee are submitted. FINDINGS: Right knee: There is hypertrophic spurring and moderate narrowing of the patellofemoral joint. Chroni c appearing deformity tibial tubercle. Mild narrowing of the medial compartment of the knee joint. Th ere is chondrocalcinosis. No acute fracture or dislocation. No erosive changes. Left knee: There is mild narrowing of the patellofemoral joint. No acute fracture or dislocation. Med ial and lateral compartment of the joint spaces are maintained with evidence of chondrocalcinosis. IMPRESSION: 1. Bilateral chondrocalcinosis with mild to moderate arthropathy of the right knee. Differential diag nosis would include the osteoarthritis or deposition arthropathy. 2. Mild arthropathy of the left patellofemoral joint.
--- NOTE | 2022-08-24 12:34 | XR ---
EXAMINATION TYPE: XR hand limited bilateral DATE OF EXAM: 08/24/2022 COMPARISON: NONE HISTORY: Pain TECHNIQUE: Two views of each hand are submitted. FINDINGS: Right hand: The osseous structures are intact. There is chronic appearing deformity of the distal uln a likely in the bases previous trauma. Cystic changes are seen involving the lunate bone and there is arthropathy of the radiocarpal joint. There is no acute fracture or dislocation. Metallic foreign b diaz adjacent to the middle phalanx of the second and third digits Left hand: There is a metallic foreign body adjacent to the distal phalanx of the first and second di gits. There is mild narrowing of the radiocarpal joint. Vascular calcifications noted. Linear scleros is involving the waist of the scaphoid. IMPRESSION: 1. No definite acute fracture or dislocation if symptoms persist, follow-up study in 7 to 10 days wo uld be suggested 2. Severe arthropathy of the radiocarpal joint right wrist with a chronic appearing fracture of the d istal right ulna. 3. Mild radiocarpal arthropathy of the left wrist. 4. Bilateral small radiopaque foreign body as discussed above. 5. Linear sclerosis involving the waist of the left scaphoid likely is chronic. CT scan of the wrist recommended for evaluation.
--- NOTE | 2022-08-24 12:36 | XR ---
EXAM TYPE: LUMBAR SPINE X RAY SERIES COMPARISON: NONE HISTORY: Pain TECHNIQUE: 4 views are submitted. FINDINGS: Alignment is anatomic. The pedicles are intact. The transverse processes are intact. There is no s pondylolysis or spondylolisthesis. Moderate to severe multilevel degenerative disc disease with multi level facet arthropathy and suspected parenchymal enlargement. Vascular calcifications noted. IMPRESSION: 1. Moderate to severe multilevel degenerative disc disease and facet arthropathy with foraminal encro achment suspected at multiple levels. Recommend MRI.
== END | disposition home or self-care (01) ==
LOC: RADXRMAIN 11:28
PROVIDERS: ATTEND Family Medicine
DX: M51.36 Other intervertebral disc degeneration, lumbar region (principal); M47.816 Spondylosis without myelopathy or radiculopathy, lumbar region; M19.031 Primary osteoarthritis, right wrist; S52.601A Unspecified fracture of lower end of right ulna, initial encounter for closed fracture; M17.0 Bilateral primary osteoarthritis of knee; M11.262 Other chondrocalcinosis, left knee; M11.261 Other chondrocalcinosis, right knee; M20.11 Hallux valgus (acquired), right foot; M20.12 Hallux valgus (acquired), left foot; M19.072 Primary osteoarthritis, left ankle and foot; M19.071 Primary osteoarthritis, right ankle and foot
CPT/HCPCS: 72110

== ENCOUNTER 2023-05-27 09:29 | Inpatient (IN) | payer OTHER ==
--- NOTE | 2023-05-27 10:05 | ED ---
General Adult HPI - General Chief complaint: Nausea/Vomiting/Diarrhea Stated complaint: Nausea/Vomiting Time Seen by Provider: 05/27/23 09:43 Source: patient, RN notes reviewed Mode of arrival: EMS Limitations: no limitations - History of Present Illness Initial comments: Is a 62-year-old male presents emergency department via EMS as a transfer from [facility] for intractable nausea vomiting. He states he started vomiting Tuesday night he states has been persistent ever since he is unable to take any of his medications. Patient is a known diabetic on insulin. Patient did have a CAT scan yesterday and today at [facility] showing no evidence of obstruction and no acute process. Patient did receive several antiemetics with no relief. Patient states that he feels like his uvula is swollen now from his emesis. Patient states she has had this happen in the past where he cannot stop vomiting. Denies any current complaints of chest pain shortness of breath or abdominal pain. He does admit to marijuana use. Patient was found to have significant cytosis at 27,000 with an elevated lactic patient states he did receive Haldol for his nausea vomiting seemed to help some. He denies any fevers. - Related Data Home Medications Medication Instructions Recorded Confirmed Nortriptyline [Pamelor] 50 mg PO HS 02/15/19 05/26/20 Simvastatin [Zocor] 40 mg PO HS 02/15/19 05/26/20 cloNIDine HCL [Catapres] 0.2 mg PO BID 02/15/19 05/26/20 lisinopriL 30 mg PO DAILY 02/15/19 05/26/20 Metoprolol Tartrate [Lopressor] 50 mg PO BID 05/26/20 05/26/20 allopurinoL [Zyloprim] 100 mg PO DAILY 05/26/20 05/26/20 metFORMIN HCL [Glucophage] 1,000 mg PO BID 05/26/20 05/26/20 Previous Rx's Medication Instructions Recorded Insulin Glargine,Hum.rec.anlog 40 unit SQ DAILY #0 05/28/20 [Lantus Solostar Pen] Allergies Allergy/AdvReac Type Severity Reaction Status Date / Time prochlorperazine AdvReac CONVULSIONS Verified 05/26/20 22:28 [From Compazine] Review of Systems ROS Statement: Those systems with pertinent positive or pertinent negative responses have been documented in the HPI. ROS Other: All systems not noted in ROS Statement are negative. Past Medical History Past Medical History: Diabetes Mellitus, GERD/Reflux, Hypertension History of Any Multi-Drug Resistant Organisms: None Reported Past Surgical History: No Surgical Hx Reported Past Anesthesia/Blood Transfusion Reactions: No Reported Reaction Past Psychological History: No Psychological Hx Reported Smoking Status: Never smoker Past Alcohol Use History: Occasional Past Drug Use History: Marijuana - Past Family History Father Additional Family Medical History / Comment(s): Bowel resection with colostomy. Mother Family Medical History: CVA/TIA, Hypertension, Myocardial Infarction ([place]) General Exam Limitations: no limitations General appearance: alert, in no apparent distress Head exam: Present: atraumatic, normocephalic, normal inspection Eye exam: Present: normal appearance, PERRL, EOMI. Absent: scleral icterus, conjunctival injection, periorbital swelling ENT exam: Present: mucous membranes moist. Absent: normal exam, normal oropharynx (Mild swelling of the uvula, swallowing secretions well) Neck exam: Present: normal inspection. Absent: tenderness, meningismus, lymphadenopathy Respiratory exam: Present: normal lung sounds bilaterally. Absent: respiratory distress, wheezes, rales, rhonchi, stridor Cardiovascular Exam: Present: normal rhythm, tachycardia, normal heart sounds. Absent: systolic murmur, diastolic murmur, rubs, gallop, clicks GI/Abdominal exam: Present: soft, normal bowel sounds. Absent: distended, tenderness, guarding, rebound, rigid Course Vital Signs 05/27/23 09:38 Temperature 98.3 F Pulse Rate 101 H Respiratory 18 Rate Blood Pressure 161/97 O2 Sat by Pulse 91 L Oximetry Medical Decision Making - Medical Decision Making Was pt. sent in by a medical professional or institution (, PA, EIGHT ARM OPERATOR, urgent care, hospital, or intermediate...) When possible be specific @ -[facility] Did you speak to anyone other than the patient for history (EMS, parent, family, police, friend...)? What history was obtained from this source @ -No Did you review nursing and triage notes (agree or disagree)? Why? @ -I reviewed and agree with nursing and triage notes Were old charts reviewed (outside hosp., previous admission, EMS record, old EKG, old radiological studies, urgent care reports/EKG's, intermediate records)? Report findings @ -Reviewed all labs and CT from [facility] Differential Diagnosis (chest pain, altered mental status, abdominal pain women, abdominal pain men, vaginal bleeding, weakness, fever, dyspnea, syncope, headache, dizziness, GI bleed, back pain, seizure, CVA, palpatations, mental health, musculoskeletal)? @ -Differential Abdominal Pain Men: Appendicitis, cholecystitis, diverticulosis, ischemic bowel, pancreatitis, hepatitis, UTI, gastroenteritis, AAA, incarcerated hernia, bowel obstruction, constipation, inflammatory bowel, hepatitis, peptic ulcer disease, splenic infarction, perforated viscus, testicular torsion, this is not meant to be an all-inclusive list EKG interpreted by me (3pts min.). @ -None X-rays interpreted by me (1pt min.). @ -None done CT interpreted by me (1pt min.). @ -None done U/S interpreted by me (1pt. min.). @ -None done What testing was considered but not performed or refused? (CT, X-rays, U/S, labs)? Why? @ -None What meds were considered but not given or refused? Why? @ -None Did you discuss the management of the patient with other professionals (professionals i.e. , PA, EIGHT ARM OPERATOR, lab, RT, psych nurse, social services specialist, marketing clerk, teacher, space operations officer, porter sample case)? Give summary @ -[Dr. Tidwell for admission for intractable nausea vomiting, transfer patient from Dr. Alberto Was smoking cessation discussed for >3mins.? @ -No Was critical care preformed (if so, how long)? @ -No Were there social determinants of health that impacted care today? How? (Homelessness, low income, unemployed, alcoholism, drug addiction, transportation, low edu. Level, literacy, decrease access to med. care, [facility], rehab)? @ -No Was there de-escalation of care discussed even if they declined (Discuss DNR or withdrawal of care, Hospice)? DNR status @ -No What co-morbidities impacted this encounter? (DM, HTN, Smoking, COPD, CAD, Cancer, CVA, ARF, Chemo, Hep., AIDS, mental health diagnosis, sleep apnea, morbid obesity)? @ -[Diabetes Was patient admitted / discharged? Hospital course, mention meds given and route, prescriptions, significant lab abnormalities, going to OR and other pertinent info. @ -Admitted patient as a transfer from [facility] for intractable nausea vomiting. Patient has no focal abdominal tenderness she has had 2 CTs which were reviewed no acute findings patient will be admitted for further hydration, antiemetics possible surgery evaluation if no improvement. Undiagnosed new problem with uncertain prognosis? @ -No Drug Therapy requiring intensive monitoring for toxicity (Heparin, Nitro, Insulin, Cardizem)? @ -No Were any procedures done? @ -No Diagnosis/symptom? @ -[Intractable nausea vomiting, dehydration, lactic acidosis Acute, or Chronic, or Acute on Chronic? @ -Acute Uncomplicated (without systemic symptoms) or Complicated (systemic symptoms)? @ -Complicated Side effects of treatment? @ -No Exacerbation, Progression, or Severe Exacerbation? @ -No Poses a threat to life or bodily function? How? (Chest pain, [place], [place], pneumonia, PE, COPD, DKA, ARF, appy, cholecystitis, CVA, Diverticulitis, Homicidal, Suicidal, threat to staff... and all critical care pts) @ -[no Disposition Clinical Impression: Intractable vomiting with nausea, Dehydration, Leukocytosis, Lactic acidosis Disposition: ADMITTED IP TO THIS HOSP Referrals: None,Stated [Primary Care Provider] - 1-2 days Time of Disposition: 10:15
[2023-05-27] MEDS ORDERED: NALOXONE 0.4 MG/ML 1 ML VIAL IV PRN (10:11)
[2023-05-27] MEDS ORDERED: ACETAMINOPHEN TAB 325 MG TAB PO PRN (10:11)
[2023-05-27 10:29] LABS: HCT 43.8 % (39.0-53.0); HGB 14.4 gm/dL (13.0-17.5); MCH 29.1 pg (25.0-35.0); MCHC 32.9 g/dL (31.0-37.0); MCV 88.3 fL (80.0-100.0); Mean Platelet Volume 9.2; Platelet Count 285 k/uL (150-450); RBC 4.95 m/uL (4.30-5.90); RDW 14.1 % (11.5-15.5); WBC 28.4 k/uL (3.8-10.6)
[2023-05-27 10:57] LABS: ALT 21 U/L (4-49); AST 30 U/L (17-59); African American GFR (CKD) >90 (>60 ml/min/1.73 sqM); Albumin 4.2 g/dL (3.5-5.0); Alkaline Phosphatase 121 U/L (38-126); Anion Gap 10 mmol/L; Blood Urea Nitrogen 25 mg/dL (9-20); Carbon Dioxide 28 mmol/L (22-30); Chloride 102 mmol/L (98-107); Glucose 238 mg/dL (74-99); Non-African American GFR(CKD) 90 (>60 ml/min/1.73 sqM); Potassium 4.1 mmol/L (3.5-5.1); Sodium 140 mmol/L (137-145); Total Bilirubin 0.8 mg/dL (0.2-1.3); Total Protein 7.1 g/dL (6.3-8.2)
[2023-05-27] MEDS: diphenhydrAMINE 50 MG/ML 1 ML VIAL IVP STA (11:21)
[2023-05-27] MEDS: METOCLOPRAMIDE 5 MG/ML 2 ML VIAL IVP SCH (11:21)
[2023-05-27] MEDS: SODIUM CHLORIDE 0.9% 1,000 ML IV SCH (11:27)
[2023-05-27] MEDS: ONDANSETRON 4 MG/2 ML VIAL IVP PRN ×2 (11:27→20:59)
[2023-05-27 18:03] LABS: Glucose,Whole Blood 186 mg/dL (70-110)
[2023-05-27] MEDS: INDOMETHACIN 25 MG CAP PO SCH (18:31)
--- NOTE | 2023-05-27 18:54 | P.HPIM ---
History of Present Illness H&P Date: 05/27/23 Chief Complaint: Nausea/vomiting 62-year-old man with a history of hypertension, diabetes, hyperlipidemia presented for evaluation of nausea/vomiting. Patient says he started develop nausea/vomiting 2 days ago and has not been able to keep anything down. He describes his emesis as dark and brown. He denies any abdominal pain, diarrhea, constipation. Denies fevers. He reports having chills which started today. He continues to take his insulin. He has not been able to take his blood pressure medication the last 2 days. He denies recent travel, antibiotic exposure. Patient was seen at [facility] and underwent [address] scans, both of which were negative for acute abdominal pathology. However, due to concern for intractable nausea/vomiting, patient was transferred to [facility] for further evaluation. In [place], patient was noted to be hypertensive to 170/100 and borderline tachycardic in the 100s, but remained afebrile. CBC, basic metabolic panel, liver function tests, UA were mostly unremarkable. In the emergency room, patient was afebrile, 148/92, heart rate 107, 90% on room air. CBC demonstrated leukocytosis of 28.4. Basic metabolic panel showed BUN 25. Lactic acid was 2.4. Liver function tests are unremarkable. Acetone is negative. Influenza A, B, RSV, COVID were negative. Repeat lactic acid is 1.8. Patient was admitted to the hospital for intractable nausea, vomiting. All Systems reviewed and pertinent positives and negatives noted in HPI, all other symptoms are negative Gen: in no apparent distress, resting comfortably in bed Eyes: PERRL, no scleral injection or icterus HENT: normocephalic, atraumatic, good hearing acuity, moist mucous membranes Neck: no tracheal deviation, full range of motion Resp: good air exchange, breathing comfortably with no accessory muscle use, no tactile fremitus, clear to auscultation bilaterally CVS: good distal perfusion x 4, no pitting edema GI: soft, NTTP, ND, no hepatosplenomegaly : no suprapubic tenderness, no CVAT, juarez catheter not present MSK: no clubbing, no cyanosis, no noted contractures of extremities Skin: no noted rashes, petechiae; temperature of skin is appropriate Neuro: moving all extremities without signs of weakness, CN II-XII intact Psych: cooperative, euthymic mood, insight and judgment intact Labs and imaging as above Assessment/plan: Intractable nausea, vomiting Possible etiology is gastroparesis -Admit to observation -Zofran 4 mg every 4 hours as needed -reglan 10mg IV q6h -Clear liquid diet -IV fluids at 75 cc/h -Repeat labs in the morning -If no resolution by tomorrow morning we will repeat an abdominal x-ray -hold indomethacin Hypertensive urgency -Resume patient's home atenolol, lisinopril, clonidine -If patient cannot keep down his oral medications, we will initiate IV versus patch medication Hyperglycemia secondary to type 2 diabetes -Resume 40/45 twice daily of Levemir -Low-dose sliding scale insulin -Low threshold for reducing Levemir dosing given repeated emesis Hyperlipidemia -Resume atorvastatin Patient is full code Past Medical History Past Medical History: Diabetes Mellitus, GERD/Reflux, Hypertension History of Any Multi-Drug Resistant Organisms: None Reported Past Surgical History: No Surgical Hx Reported Past Anesthesia/Blood Transfusion Reactions: No Reported Reaction Smoking Status: Never smoker - Past Family History Father Additional Family Medical History / Comment(s): Bowel resection with colostomy. Mother Family Medical History: CVA/TIA, Hypertension, Myocardial Infarction ([place]) Medications and Allergies Home Medications Medication Instructions Recorded Confirmed Type Nortriptyline [Pamelor] 50 mg PO HS 02/15/19 05/27/23 History Simvastatin [Zocor] 40 mg PO HS 02/15/19 05/27/23 History cloNIDine HCL [Catapres] 0.2 mg PO BID 02/15/19 05/27/23 History lisinopriL 15 mg PO DAILY 02/15/19 05/27/23 History Dapagliflozin Propanediol [Farxiga] 10 mg PO DAILY 05/27/23 05/27/23 History Indomethacin [Indocin] 50 mg PO BID-W/MEALS 05/27/23 05/27/23 History Insulin Glargine,Hum.rec.anlog 40 units SQ DAILY 05/27/23 05/27/23 History [Lantus Solostar Pen] Insulin Glargine,Hum.rec.anlog 45 units SQ HS 05/27/23 05/27/23 History [Lantus Solostar Pen] Omeprazole 20 mg PO DAILY 05/27/23 05/27/23 History Ondansetron Odt [Zofran Odt] 4 mg PO Q8HR PRN 05/27/23 05/27/23 History atenoloL [Tenormin] 100 mg PO DAILY 05/27/23 05/27/23 History Allergies Allergy/AdvReac Type Severity Reaction Status Date / Time prochlorperazine AdvReac CONVULSIONS Verified 05/27/23 10:45 [From Compazine] Physical Exam Osteopathic Statement: *. No significant issues noted on an osteopathic structural exam other than those noted in the History and Physical/Consult. Vitals: Vital Signs Temp Pulse Pulse Resp BP BP Pulse Ox 05/27/23 17:48 98.5 F 97 20 214/114 93 L 05/27/23 17:00 97.8 F 107 H 18 148/92 90 L 05/27/23 16:00 108 H 20 163/94 90 L 05/27/23 15:00 110 H 20 180/112 90 L 05/27/23 13:30 98.8 F 110 H 20 169/83 90 L 05/27/23 12:00 104 H 20 170/106 93 L 05/27/23 11:00 104 H 20 169/109 90 L 05/27/23 10:30 101 H 20 170/101 91 L 05/27/23 10:00 103 H 20 171/102 92 L 05/27/23 09:38 98.3 F 101 H 18 161/97 91 L Intake and Output 05/27/23 05/27/23 05/27/23 06:59 14:59 22:59 Other: Weight 99.79 kg 99.79 kg Results CBC & Chem 7: 05/27/23 10:22 05/27/23 10:22 Labs: Abnormal Lab Results - Last 24 Hours (Table) 05/27/23 05/27/23 05/27/23 Range/Units 10:22 10:22 10:22 WBC 28.4 H (3.8-10.6) k/uL BUN 25 H (9-20) mg/dL Glucose 238 H (74-99) mg/dL POC Glucose (mg/dL) (70-110) mg/dL Plasma Lactic Acid Richard 2.4 H* (0.7-2.0) mmol/L 05/27/23 Range/Units 18:02 WBC (3.8-10.6) k/uL BUN (9-20) mg/dL Glucose (74-99) mg/dL POC Glucose (mg/dL) 186 H (70-110) mg/dL Plasma Lactic Acid Richard (0.7-2.0) mmol/L Thrombosis Risk Factor Assmnt - Choose All That Apply Each Factor Represents 1 point: Medical pt on bed rest, Sepsis (< 1month) Other Risk Factors: Yes Each Risk Factor Represents 2 Points: Age 61-74 years Each Risk Factor Represents 3 Points: Family history of DVT/PE Thrombosis Risk Factor Assessment Total Risk Factor Score: 7 Thrombosis Risk Factor Assessment Level: High Risk
[2023-05-27 19:53] LABS: Glucose,Whole Blood 207 mg/dL (70-110)
[2023-05-27] MEDS: NORTRIPTYLINE 25 MG CAP PO SCH (22:18)
[2023-05-27] MEDS: INSULIN DETEMIR (LEVEMIR) 100 UNIT/ML SYR SQ SCH (22:18)
[2023-05-27] MEDS: cloNIDine HCL 0.2 MG TAB PO SCH (22:18)
[2023-05-27] MEDS: ATORVASTATIN 20 MG TAB PO SCH (22:18)
[2023-05-27] MEDS: ALPRAZolam 0.5 MG TAB PO PRN (22:18)
[2023-05-28 06:57] LABS: Glucose,Whole Blood 171 mg/dL (70-110)
[2023-05-28] MEDS ORDERED: PANTOPRAZOLE 40 MG TABLET PO SCH (07:30)
[2023-05-28] MEDS: INSULIN ASPART (NovoLOG) 100 UNIT/ML VIAL SQ SCH (08:27)
[2023-05-28] MEDS: atenoloL 50 MG TAB PO SCH (08:27)
[2023-05-28] MEDS: lisinopriL 5 MG TAB PO SCH (08:27)
[2023-05-28] MEDS: INSULIN DETEMIR (LEVEMIR) 100 UNIT/ML SYR SQ SCH (08:27)
[2023-05-28] MEDS: PANTOPRAZOLE 40 MG/10 ML VIAL IV SCH (08:27)
[2023-05-28] MEDS: DAPAGLIFLOZIN PROPANEDIOL 10 MG TABLET PO SCH (08:28)
[2023-05-28 09:40] LABS: HCT 41.8 % (39.6-50.0); HGB 13.3 g/dL (13.0-17.0); MCH 27.9 pg (27.0-32.0); MCHC 31.8 g/dL (32.0-37.0); MCV 87.6 FL (80.0-97.0); Mean Platelet Volume 11.7 FL (9.5-12.2); NRBC Per 100 WBC 0 X 10*3/uL (0.00-0.01); Platelet Count 241 X 10*3/uL (140-440); RBC 4.77 X 10*6/uL (4.40-5.60); RDW 13.8 % (11.5-14.5); WBC 20.29 X 10*3/uL (4.50-10.00)
[2023-05-28 10:16] LABS: ALT 15 U/L (10-49); AST 25 U/L (14-35); Albumin 3.9 g/dL (3.8-4.9); Albumin/Globulin Ratio 1.44 Ratio (1.60-3.17); Alkaline Phosphatase 108 U/L (41-126); Bilirubin, Conjugated 0.22 mg/dL (0.20-0.40); Bilirubin,Unconjugated 0.58 mg/dL (0.20-1.00); Blood Urea Nitrogen 20.4 mg/dL (9.0-27.0); Carbon Dioxide 29.9 mmol/L (21.6-31.8); Chloride 98 mmol/L (96-109); Globulin 2.7 g/dL (1.6-3.3); Glucose 150 mg/dL (70-110); Magnesium 1.5 mg/dL (1.5-2.4); Potassium 3.8 mmol/L (3.5-5.5); Sodium 139 mmol/L (135-145); Total Bilirubin 0.8 mg/dL (0.3-1.2); Total Protein 6.6 g/dL (6.2-8.2)
[2023-05-28 11:00] LABS: Basophils # (A) 0.06 X 10*3/uL (0.00-0.10); Basophils % (A) 0.3 %; Eosinophils # (A) 0.01 X 10*3/uL (0.04-0.35); Eosinophils % (A) 0 %; Lymphocytes # (A) 2.06 X 10*3/uL (0.90-5.00); Lymphocytes % (A) 10.2 %; Monocytes # (A) 1.79 X 10*3/uL (0.20-1.00); Monocytes % (A) 8.8 %; Neutrophils % (A) 80.4 %; RBC Morphology Normal (Normal)
--- NOTE | 2023-05-28 11:08 | P.DS ---
Providers Date of admission: 05/27/23 11:22 Expected date of discharge: 05/28/23 Attending physician: Manju Edwards DO Primary care physician: Physician Nonstaff Hospital Course: Intractable nausea, vomiting Possible etiology is gastroparesis Hypertensive urgency Hyperglycemia secondary to type 2 diabetes Hyperlipidemia 62-year-old man with a history of hypertension, diabetes, hyperlipidemia presented for evaluation of nausea/vomiting. Patient was seen at [facility] and underwent [address] scans, both of which were negative for acute abdominal pathology. However, due to concern for intractable nausea/vomiting, patient was transferred to [facility] for further evaluation. In [place], patient was noted to be hypertensive to 170/100 and borderline tachycardic in the 100s, but remained afebrile. CBC, basic metabolic panel, liver function tests, UA were mostly unremarkable. In the emergency room, patient was afebrile, 148/92, heart rate 107, 90% on room air. CBC demon strated leukocytosis of 28.4. Basic metabolic panel showed BUN 25. Lactic acid was 2.4. Liver function tests are unremarkable. Acetone is negative. Influenza A, B, RSV, COVID were negative. Repeat lactic acid is 1.8. Patient was admitted to the hospital for intractable nausea, vomiting. Pt was started on reglan ACHS, and after 24 hours of hospitalization, he felt improved back to baseline, was able to tolerate medications and diet. Pt discharged home with PCP f/u and new script for reglan ACHS PRN for nausea. I spent 32 minutes coordinating this discharge Gen: in no apparent distress, resting comfortably in bed Eyes: PERRL, no scleral injection or icterus HENT: normocephalic, atraumatic, good hearing acuity, moist mucous membranes Neck: no tracheal deviation, full range of motion Resp: good air exchange, breathing comfortably with no accessory muscle use, no tactile fremitus, clear to auscultation bilaterally CVS: good distal perfusion x 4, no pitting edema GI: soft, NTTP, ND, no hepatosplenomegaly : no suprapubic tenderness, no CVAT, juarez catheter not present MSK: no clubbing, no cyanosis, no noted contractures of extremities Skin: no noted rashes, petechiae; temperature of skin is appropriate Neuro: moving all extremities without signs of weakness, CN II-XII intact Psych: cooperative, euthymic mood, insight and judgment intact Patient Condition at Discharge: Good Plan - Discharge Summary New Discharge Prescriptions: New Metoclopramide [Reglan] 5 mg PO ACHS PRN #30 tab PRN Reason: Nausea Acetaminophen Tab [Tylenol] 650 mg PO Q6HR PRN tab PRN Reason: Mild Pain Or Fever > 100.5 Continue cloNIDine HCL [Catapres] 0.2 mg PO BID Simvastatin [Zocor] 40 mg PO HS lisinopriL 15 mg PO DAILY Nortriptyline [Pamelor] 50 mg PO HS Ondansetron Odt [Zofran ODT] 4 mg PO Q8HR PRN PRN Reason: Nausea And Vomiting Insulin Glargine,Hum.rec.anlog [Lantus Solostar Pen] 40 units SQ DAILY Insulin Glargine,Hum.rec.anlog [Lantus Solostar Pen] 45 units SQ HS Dapagliflozin Propanediol [Farxiga] 10 mg PO DAILY Omeprazole 20 mg PO DAILY atenoloL [Tenormin] 100 mg PO DAILY Discontinued Indomethacin [Indocin] 50 mg PO BID-W/MEALS Discharge Medication List Nortriptyline [Pamelor] 50 mg PO HS 02/15/19 [History] Simvastatin [Zocor] 40 mg PO HS 02/15/19 [History] cloNIDine HCL [Catapres] 0.2 mg PO BID 02/15/19 [History] lisinopriL 15 mg PO DAILY 02/15/19 [History] Dapagliflozin Propanediol [Farxiga] 10 mg PO DAILY 05/27/23 [History] Insulin Glargine,Hum.rec.anlog [Lantus Solostar Pen] 40 units SQ DAILY 05/27/23 [History] Insulin Glargine,Hum.rec.anlog [Lantus Solostar Pen] 45 units SQ HS 05/27/23 [History] Omeprazole 20 mg PO DAILY 05/27/23 [History] Ondansetron Odt [Zofran ODT] 4 mg PO Q8HR PRN 05/27/23 [History] atenoloL [Tenormin] 100 mg PO DAILY 05/27/23 [History] Acetaminophen Tab [Tylenol] 650 mg PO Q6HR PRN tab 05/28/23 [Rx] Metoclopramide [Reglan] 5 mg PO ACHS PRN #30 tab 05/28/23 [Rx] Follow up Appointment(s)/Referral(s): None,Stated [REFERRING] - 1-2 days Patient Instructions/Handouts: Metoclopramide (By mouth), Dehydration (DC), Acute Nausea and Vomiting (DC), Leukocytosis (DC), Lactic Acidosis (GEN) Discharge Disposition: HOME SELF-CARE
[2023-05-28 11:49] LABS: Glucose,Whole Blood 95 mg/dL (70-110)
--- NOTE | 2023-05-28 13:14 | P.PN ---
Progress Note - Text Progress Note Date: 05/28/23 Patient was able to tolerate a sandwich, however, still complaining of trouble swallowing with pain due to having a raw back of his throat. Patient still has a white blood cell count of 20, though this is improving without antibiotics. However, given ongoing symptoms of dysphagia, we will order a CT of the neck with contrast to rule out any infectious pathology. Continue to monitor the patient for 1 more night at this time
[2023-05-28 16:44] LABS: Glucose,Whole Blood 81 mg/dL (70-110)
--- NOTE | 2023-05-28 19:28 | CT ---
EXAMINATION TYPE: CT soft tissue neck w con DATE OF EXAM: 05/28/2023 COMPARISON: None HISTORY: 62-year-old male dysphagia x3 days TECHNIQUE: Contiguous axial scanning of the soft tissues of the neck performed with IV Contrast, margarito ent injected with 100 mL of Isovue 300. Coronal and sagittal reconstructions performed. CT DLP: 703.8 mGycm Automated exposure control for dose reduction was used. FINDINGS: There is circumferential thickening of the visualized thoracic esophagus. This results in some prever tebral soft tissue swelling at the mid to lower neck. Visualized upper lungs appear clear. Some prominent right paratracheal lymph nodes measuring up to 1.4 cm, likely reactive. Thyroid gland shows no gross abnormality. The ventricular gland slightly atrophic. Bilateral parotid glands are satisfactory. There is diffuse thickening of the cervical mucosal space in the oropharynx, epiglottis, and hypophar ynx. This results in marked circumferential narrowing of the supraglottic airway, for example, axial image 46. Tiny 5 mm tonsillolith right palatine tonsil. Nasopharynx is patent. No abnormal soft tissue swelling along the floor the mouth. Enlarged left station 2A lymph node 2.0 cm. Moderate spondylotic change mid to lower cervical spine. DISH in the visualized upper thoracic spine. IMPRESSION: 1. DIFFUSE SOFT TISSUE SWELLING ALONG THE CERVICAL MUCOSAL SPACE OF THE OROPHARYNX, HYPOPHARYNX, AND CIRCUMFERENTIAL SOFT TISSUE SWELLING CONTINUING DOWN THE VISUALIZED THORACIC ESOPHAGUS. THIS RESULTS IN MARKED CIRCUMFERENTIAL NARROWING OF THE SUPRAGLOTTIC AIRWAY. THERE IS ALSO MILD PREVERTEBRAL SOFT TISSUE SWELLING. UNCLEAR IF THIS IS SECONDARY TO PROCESSES SUCH ANGIOEDEMA, EXTENSIVE PHARYNGEAL C ELLULITIS WITH CONTIGUOUS ESOPHAGITIS, OR UNDERLYING NEOPLASM. FURTHER CLINICAL CORRELATION RECOMMEND ED. 2. AN ENLARGED 2.0 CM LEFT STATION 2A LYMPH NODE. A COUPLE ENLARGED 1.4 CM RIGHT PARATRACHEAL LYMPH N ODES IN THE SUPERIOR MEDIASTINUM. THESE MAY BE REACTIVE.
[2023-05-28 19:54] LABS: Glucose,Whole Blood 139 mg/dL (70-110)
[2023-05-29 01:59] LABS: Glucose,Whole Blood 115 mg/dL (70-110)
[2023-05-29 07:01] LABS: Glucose,Whole Blood 72 mg/dL (70-110)
[2023-05-29] MEDS: AMPICILLIN-SULBACTAM 3 GM in SODIUM CHLORIDE 0.9% 100 ML IVPB SCH (08:52)
[2023-05-29] MEDS: metroNIDAZOLE-NS PMX 500 MG in SALINE 1 100ML.BAG IVPB SCH (09:55)
[2023-05-29] MEDS: INSULIN DETEMIR (LEVEMIR) 100 UNIT/ML SYR SQ SCH ×2 (09:55→21:01)
[2023-05-29] MEDS: methylPREDNISolone SOD SUCCI 125 MG/2 ML VIAL IV SCH (10:54)
[2023-05-29 11:50] LABS: Glucose,Whole Blood 136 mg/dL (70-110)
[2023-05-29] MEDS ORDERED: methylPREDNISolone SOD SUCCI 125 MG/2 ML VIAL IV SCH (12:00)
--- NOTE | 2023-05-29 12:01 | P.PN ---
Subjective Progress Note Date: 05/29/23 Pt still c/o significant pain with swallowing and inability to swallow solids. CT soft tissue neck showed significant swelling of laryngeal area, superior esophagus, and prevertebral space. ENT consulted. Gen: in no apparent distress, resting comfortably in bed Eyes: PERRL, no scleral injection or icterus HENT: normocephalic, atraumatic, good hearing acuity, moist mucous membranes, erythematous posterior pharynx Neck: no tracheal deviation, full range of motion Resp: good air exchange, breathing comfortably with no accessory muscle use, no tactile fremitus, clear to auscultation bilaterally CVS: good distal perfusion x 4, no pitting edema GI: soft, NTTP, ND, no hepatosplenomegaly : no suprapubic tenderness, no CVAT, juarez catheter not present MSK: no clubbing, no cyanosis, no noted contractures of extremities Skin: no noted rashes, petechiae; temperature of skin is appropriate Neuro: moving all extremities without signs of weakness, CN II-XII intact Psych: cooperative, euthymic mood, insight and judgment intact Hospital Course: 62-year-old man with a history of hypertension, diabetes, hyperlipidemia presented for evaluation of nausea/vomiting. Patient was seen at [facility] and underwent [address] scans, both of which were negative for acute abdominal pathology. However, due to concern for intractable nausea/vomiting, patient was transferred to [facility] for further evaluation. In [place], patient was noted to be hypertensive to 170/100 and borderline tachycardic in the 100s, but remained afebrile. CBC, basic metabolic panel, liver function tests, UA were mostly unremarkable. In the emergency room, patient was afebrile, 148/92, heart rate 107, 90% on room air. CBC demonstrated leukocytosis of 28.4. Basic metabolic panel showed BUN 25. Lactic acid was 2.4. Liver function tests are unremarkable. Acetone is negative. Influenza A, B, RSV, COVID were negative. Repeat lactic acid is 1.8. Patient was admitted to the hospital for intractable nausea, vomiting. Assessment/plan: Intractable nausea, vomiting Dysphagia -Admit to inpatient -Zofran 4 mg every 4 hours as needed -reglan 10mg IV q6h -Clear liquid diet -IV fluids at 75 cc/h -Repeat labs in the morning -ENT consult for CT Neck findings -ID consult for CT neck findings -start unasyn, flagyl -hold indomethacin Hypertensive urgency -Resume patient's home atenolol, lisinopril, clonidine -If patient cannot keep down his oral medications, we will initiate IV versus patch medication Hyperglycemia secondary to type 2 diabetes -downtitrated to 35/35 twice daily of Levemir -Low-dose sliding scale insulin -Low threshold for reducing Levemir dosing given repeated emesis Hyperlipidemia -Resume atorvastatin Patient is full code Objective - Vital Signs Vital signs: Vital Signs Temp 97.9 F 05/29/23 07:02 Pulse 74 05/29/23 07:02 Resp 20 05/29/23 07:02 BP 163/89 05/29/23 07:02 Pulse Ox 93 L 05/29/23 07:02 FiO2 Intake & Output 05/28/23 05/29/23 05/29/23 17:59 06:59 18:59 Intake Total Output Total Balance Intake: Intake, IV Titration Amount Sodium Chloride 0.9% 1, 000 ml @ 75 mls/hr IV . [id number] [facility] Rx#:[id number] Output: Urine Other: Voiding Method - Labs CBC & Chem 7: 05/28/23 05:03 05/28/23 05:03 Labs: Abnormal Lab Results - Last 24 Hours (Table) 05/28/23 05/28/23 05/29/23 Range/Units 05:03 19:51 01:56 Immature Gran # 0.07 H (0.00-0.04) X 10*3/uL Neutrophils # 16.30 H (1.80-7.70) X 10*3/uL Monocytes # 1.79 H (0.20-1.00) X 10*3/uL Eosinophils # 0.01 L (0.04-0.35) X 10*3/uL POC Glucose (mg/dL) 139 H 115 H (70-110) mg/dL 05/29/23 Range/Units 11:48 Immature Gran # (0.00-0.04) X 10*3/uL Neutrophils # (1.80-7.70) X 10*3/uL Monocytes # (0.20-1.00) X 10*3/uL Eosinophils # (0.04-0.35) X 10*3/uL POC Glucose (mg/dL) 136 H (70-110) mg/dL
[2023-05-29 12:46] LABS: Basophils # (A) 0.1 k/uL (0-0.2); Basophils % (A) 0 %; Eosinophils # (A) 0.1 k/uL (0-0.7); Eosinophils % (A) 0 %; HCT 50.1 % (39.0-53.0); HGB 16.5 gm/dL (13.0-17.5); Lymphocytes # (A) 0.8 k/uL (1.0-4.8); Lymphocytes % (A) 5 %; MCH 29.6 pg (25.0-35.0); MCHC 32.9 g/dL (31.0-37.0); MCV 89.9 fL (80.0-100.0); Mean Platelet Volume 8.4; Monocytes # (A) 0.6 k/uL (0-1.0); Monocytes % (A) 4 %; Neutrophils # (A) 14.3 k/uL (1.3-7.7); Neutrophils % (A) 90 %; Platelet Count 246 k/uL (150-450); RBC 5.57 m/uL (4.30-5.90); RDW 13.8 % (11.5-15.5); WBC 15.8 k/uL (3.8-10.6)
[2023-05-29 13:04] LABS: African American GFR (CKD) >90 (>60 ml/min/1.73 sqM); Anion Gap 6 mmol/L; Blood Urea Nitrogen 18 mg/dL (9-20); C Reactive Protein 7.1 mg/dL (<1.0); Calcium 9.1 mg/dL (8.4-10.2); Carbon Dioxide 34 mmol/L (22-30); Chloride 98 mmol/L (98-107); Glucose 96 mg/dL (74-99); Magnesium 1.6 mg/dL (1.6-2.3); Non-African American GFR(CKD) 89 (>60 ml/min/1.73 sqM); Potassium 3.9 mmol/L (3.5-5.1); Sodium 138 mmol/L (137-145)
[2023-05-29] MEDS: cloNIDine HCL 0.2 MG TAB PO SCH (13:38)
--- NOTE | 2023-05-29 15:38 | P.GSCN ---
History of Present Illness Consult date: 05/29/23 Reason for Consult: Throat and esophageal swelling Requesting physician: Bandar Fenton History of present illness: This is a 62-year-old white male who presented to the hospital to throat swelling and esophageal swelling on computed tomography scan. His history is as follows. For the last 5-10 years she's had intermittent throat swelling. Food is stuck in his throat. This starts with gastroesophageal reflux symptoms and then progresses to significant dysphagia and he is unable to swallow for several days which it then resolves. This last year he's had 2-3 episodes of this issue. Recently on Tuesday evening he started having heartburn issues he had a hard time drinking water and vomited. afternoon he went to [facility] was treated with antinausea medications and then went home. He was given medications to prevent has nausea but by midnight he worsened went back to the emergency room at [facility] and then transferred Tuesday to [facility]. He has a hot potato voice significant dysphagiat eating. He does have a reaction to Compazine and has a tardive dyskinesia no true ALLERGIES. Denies any significant ALLERGY issues overall. Denies ALLERGIES to pollen, dust mite, animals etc. Denies any food ALLERGY issues and needs a standard Citizen [place] diet. He smokes marijuana drinks alcohol regularly. CAT scan evaluation shows swelling from the midesophagus up into the hypopharynx and into the opening the oropharynx with no signs of any airway compromise issues. Denies any stridor or difficulty breathing at this time. Review of Systems - Constitutional Reports as per HPI - EENT Ears, nose, mouth and throat: Reports as per HPI - Cardiovascular Reports as per HPI - Respiratory Reports as per HPI - Gastrointestinal Reports as per HPI - Genitourinary Reports as per HPI - Integumentary Reports as per HPI - Neurological Reports as per HPI - Psychiatric Reports as per HPI - Endocrine Reports as per HPI - Hematologic/Lymphatic Reports as per HPI - Allergic/Immunologic Reports as per HPI Past Medical History Past Medical History: Diabetes Mellitus, GERD/Reflux, Hypertension History of Any Multi-Drug Resistant Organisms: None Reported Past Surgical History: No Surgical Hx Reported Past Anesthesia/Blood Transfusion Reactions: No Reported Reaction Smoking Status: Never smoker - Past Family History Father Additional Family Medical History / Comment(s): Bowel resection with colostomy. Mother Family Medical History: CVA/TIA, Hypertension, Myocardial Infarction ([place]) Medications and Allergies Home Medications Medication Instructions Recorded Confirmed Type Nortriptyline [Pamelor] 50 mg PO HS 02/15/19 05/27/23 History Simvastatin [Zocor] 40 mg PO HS 02/15/19 05/27/23 History cloNIDine HCL [Catapres] 0.2 mg PO BID 02/15/19 05/27/23 History lisinopriL 15 mg PO DAILY 02/15/19 05/27/23 History Dapagliflozin Propanediol [Farxiga] 10 mg PO DAILY 05/27/23 05/27/23 History Insulin Glargine,Hum.rec.anlog 40 units SQ DAILY 05/27/23 05/27/23 History [Lantus Solostar Pen] Insulin Glargine,Hum.rec.anlog 45 units SQ HS 05/27/23 05/27/23 History [Lantus Solostar Pen] Omeprazole 20 mg PO DAILY 05/27/23 05/27/23 History Ondansetron Odt [Zofran ODT] 4 mg PO Q8HR PRN 05/27/23 05/27/23 History atenoloL [Tenormin] 100 mg PO DAILY 05/27/23 05/27/23 History Acetaminophen Tab [Tylenol] 650 mg PO Q6HR PRN tab 05/28/23 Rx Metoclopramide [Reglan] 5 mg PO ACHS PRN #30 tab 05/28/23 Rx Allergies Allergy/AdvReac Type Severity Reaction Status Date / Time prochlorperazine AdvReac CONVULSIONS Verified 05/27/23 10:45 [From Compazine] Surgical - Exam Osteopathic Statement: *. No significant issues noted on an osteopathic structural exam other than those noted in the History and Physical/Consult. Vital Signs Temp Pulse Resp BP Pulse Ox 98.3 F 101 H 18 161/97 91 L 05/27/23 09:38 05/27/23 09:38 05/27/23 09:38 05/27/23 09:38 05/27/23 09:38 - General well developed, well nourished, no distress - Eyes PERRL, normal ocular movement - ENT Head is normocephalic the face is symmetric there's no abnormal movements is no tenderness to the sinuses are mastoids is no nodules or eruptions or parasites on scalp. Auricles are well-formed canals are clear tympanic members are without bulging or retraction. Nose is patent. Patient has poor dental care. No oral lesions are seen. Neck is unremarkable normal pinna - Neck no masses - Integumentary no rash, no growths - Neurologic normal coordination, normal sensation - Musculoskeletal normal gait, normal posture - Psychiatric oriented to time, oriented to person, oriented to place, speech is normal, memory intact Results - Labs 05/29/23 12:31 05/29/23 12:31 Abnormal Lab Results - Last 24 Hours (Table) 05/28/23 05/29/23 05/29/23 Range/Units 19:51 01:56 11:48 WBC (3.8-10.6) k/uL Neutrophils # (1.3-7.7) k/uL Lymphocytes # (1.0-4.8) k/uL Carbon Dioxide (22-30) mmol/L POC Glucose (mg/dL) 139 H 115 H 136 H (70-110) mg/dL C-Reactive Protein (<1.0) mg/dL 05/29/23 05/29/23 Range/Units 12:31 12:31 WBC 15.8 H (3.8-10.6) k/uL Neutrophils # 14.3 H (1.3-7.7) k/uL Lymphocytes # 0.8 L (1.0-4.8) k/uL Carbon Dioxide 34 H (22-30) mmol/L POC Glucose (mg/dL) (70-110) mg/dL C-Reactive Protein 7.1 H (<1.0) mg/dL Diabetes panel 05/29/23 Range/Units 12:31 Sodium 138 (137-145) mmol/L Potassium 3.9 (3.5-5.1) mmol/L Chloride 98 (98-107) mmol/L Carbon Dioxide 34 H (22-30) mmol/L BUN 18 (9-20) mg/dL Creatinine 0.93 (0.66-1.25) mg/dL Glucose 96 (74-99) mg/dL Calcium 9.1 (8.4-10.2) mg/dL Calcium panel 05/29/23 Range/Units 12:31 Calcium 9.1 (8.4-10.2) mg/dL Pituitary panel 05/29/23 Range/Units 12:31 Sodium 138 (137-145) mmol/L Potassium 3.9 (3.5-5.1) mmol/L Chloride 98 (98-107) mmol/L Carbon Dioxide 34 H (22-30) mmol/L BUN 18 (9-20) mg/dL Creatinine 0.93 (0.66-1.25) mg/dL Glucose 96 (74-99) mg/dL Calcium 9.1 (8.4-10.2) mg/dL Adrenal panel 05/29/23 Range/Units 12:31 Sodium 138 (137-145) mmol/L Potassium 3.9 (3.5-5.1) mmol/L Chloride 98 (98-107) mmol/L Carbon Dioxide 34 H (22-30) mmol/L BUN 18 (9-20) mg/dL Creatinine 0.93 (0.66-1.25) mg/dL Glucose 96 (74-99) mg/dL Calcium 9.1 (8.4-10.2) mg/dL Assessment and Plan (1) Angioedema Current Visit: Yes Status: Acute Code(s): T78.3XXA - ANGIONEUROTIC EDEMA, INITIAL ENCOUNTER SNOMED Code(s): 40743007 Plan: This patient has had intermittent angioedema issues with swelling of the thoracic esophagus cervical esophagus hypopharynx etc. on and off for the last 5-10 years. This recent episode started Tuesday and CAT scan evaluation shows a diffuse swelling from the thoracic esophagus all lower lip into the beginning of the oropharynx. Examination of the patient including nasopharyngolaryngoscope shows no signs of any impending airway issues. There is some pooling of secretions in the piriform region but no signs of any discrete tumors or masses. Patient is unable to swallow which is a reason for the pooling of secretions. The swelling on CAT scan most likely resembles angioedema. The patient is on lisinopril and interestingly has been taking lisinopril for 10 years which is when his intermittent issue started. I've recommended cessation of lisinopril and replacing this with a non-PRIYA inhibitor blood pressure medication. I've place the patient on Solu-Medrol which may have some effects to reduce swelling generally is minimally helpful. After cessation of the lisinopril we will see if his angioedema diminishes in time. If not, continued workup to find the etiology for the angioedema is recommended including a food ALLERGY workup. Etc. 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 I've given my card to the patient and his daughter who was present for the history and physical examination today. They will follow up with me on outpatient basis. If I can be of any further service to you please do not hesitate to contact me. I've told the nursing staff that if there is any evidence of stridor they're to contact me immediately. I did order a C1 inhibitor assay to rule out an aquired c1 inhibitor deficiency. Time with Patient: Greater than 30
--- NOTE | 2023-05-29 15:42 | P.OP ---
Date of Procedure: 05/29/23 Preoperative Diagnosis: Throat swelling dysphagia angioedema Postoperative Diagnosis: Throat swelling esophageal swelling dysphagia Procedure(s) Performed: Flexible diagnostic nasopharyngolaryngoscope Anesthesia: none Surgeon: Gus Hazel Estimated Blood Loss (ml): 0 Pathology: none sent Condition: stable Disposition: PACU Indications for Procedure: Patient has severe dysphagia CAT scan demonstrates swelling of the mid and upper esophagus hypopharynx etc. Examination of this area is recommended dysphagia is significant Operative Findings: Patient had pooling of secretions in the hypopharynx with no evidence of any specific mass or tumor. Description of Procedure: An EF type GP nasopharyngoscope was inserted into the patient's left nares with care to avoid any trauma to the septum or associated mucosal regions. This went along the floor the nose into the nasopharynx there is no signs of any nasopharyngeal pathology adenoid tissue is noted which is scant. Oropharynx shows no tumors or masses. Tonsils are not enlarged. Hypopharynx shows pooling of secretions in the piriform regions bilaterally symmetric. Vocal cords appear unremarkable epiglottis is unremarkable base of tongue is unremarkable posterior pharynx is unremarkable.
[2023-05-29] MEDS: amLODIPine 10 MG TAB PO SCH (16:40)
[2023-05-29 17:09] LABS: Glucose,Whole Blood 124 mg/dL (70-110)
[2023-05-29 20:08] LABS: Glucose,Whole Blood 254 mg/dL (70-110)
--- NOTE | 2023-05-29 21:04 | P.CONS ---
History of Present Illness - Reason for Consult Consult date: 05/29/23 - History of Present Illness Patient is a 62-year-old male with a past medical history significant for diabetes mellitus reflux hypertension also have a history of recurrent throat swelling/dysphagia this being his sixth episode patient symptoms started after he did have a specific beer or 2 patient noticed to having heartburn subsequently throat swelling and episodes of vomiting for the patient presented to the hospital patient presented to hospital 2 days ago on arrival to the ER patient was afebrile and no fever have recorded subsequently patient was tachycardic but not hypotensive or hypoxic and no need for supplemental oxygen patient did have a white count of 28,000 she is on 15.8 creatinine has been normal liver isms are normal influenza RSV COVID testing was negative patient did have a soft tissue neck CT diffuse soft tissue swelling along the cervical mucosa space of the oropharynx hypopharynx and circumferential soft tissue swelling continued on the visualized thoracic esophagus is also marked circumferential narrowing of the supraglottic airway mild prevertebral soft tissue swelling patient was started on Unasyn and Flagyl infectious disease was consulted for further management of antibiotic therapy at the time my evaluation patient denies having any fever or any chills patient mention his symptoms of heartburn difficulty swallowing and also has slight decrease in intensity patien t denies having any cough or sputum production no nausea no abdominal pain no diarrhea Past Medical History Past Medical History: Diabetes Mellitus, GERD/Reflux, Hypertension History of Any Multi-Drug Resistant Organisms: None Reported Past Surgical History: No Surgical Hx Reported Past Anesthesia/Blood Transfusion Reactions: No Reported Reaction Smoking Status: Never smoker - Past Family History Father Additional Family Medical History / Comment(s): Bowel resection with colostomy. Mother Family Medical History: CVA/TIA, Hypertension, Myocardial Infarction ([place]) Medications and Allergies Home Medications Medication Instructions Recorded Confirmed Type Nortriptyline [Pamelor] 50 mg PO HS 02/15/19 05/27/23 History Simvastatin [Zocor] 40 mg PO HS 02/15/19 05/27/23 History cloNIDine HCL [Catapres] 0.2 mg PO BID 02/15/19 05/27/23 History lisinopriL 15 mg PO DAILY 02/15/19 05/27/23 History Dapagliflozin Propanediol [Farxiga] 10 mg PO DAILY 05/27/23 05/27/23 History Insulin Glargine,Hum.rec.anlog 40 units SQ DAILY 05/27/23 05/27/23 History [Lantus Solostar Pen] Insulin Glargine,Hum.rec.anlog 45 units SQ HS 05/27/23 05/27/23 History [Lantus Solostar Pen] Omeprazole 20 mg PO DAILY 05/27/23 05/27/23 History Ondansetron Odt [Zofran ODT] 4 mg PO Q8HR PRN 05/27/23 05/27/23 History atenoloL [Tenormin] 100 mg PO DAILY 05/27/23 05/27/23 History Acetaminophen Tab [Tylenol] 650 mg PO Q6HR PRN tab 05/28/23 Rx Metoclopramide [Reglan] 5 mg PO ACHS PRN #30 tab 05/28/23 Rx Allergies Allergy/AdvReac Type Severity Reaction Status Date / Time prochlorperazine AdvReac CONVULSIONS Verified 05/27/23 10:45 [From Compazine] Physical Exam Vitals: Vital Signs Temp Pulse Resp BP Pulse Ox 05/29/23 07:02 97.9 F 74 20 163/89 93 L 05/29/23 03:00 98.2 F 76 22 162/97 93 L 05/28/23 19:45 20 05/28/23 19:19 98.7 F 72 20 130/65 91 L 05/28/23 12:14 97.9 F 73 16 176/96 91 L Intake and Output 05/28/23 05/29/23 05/29/23 21:59 06:59 14:59 Intake Total Output Total Balance Intake: Intake, IV Titration Amount Sodium Chloride 0.9% 1, 000 ml @ 75 mls/hr IV . [id number] [facility] Rx#:[id number] Output: Urine Other: Voiding Method Results CBC & Chem 7: 05/30/23 05:30 05/30/23 05:30 Labs: Abnormal Lab Results - Last 24 Hours (Table) 05/28/23 05/29/23 05/29/23 Range/Units 19:51 01:56 11:48 WBC (3.8-10.6) k/uL Neutrophils # (1.3-7.7) k/uL Lymphocytes # (1.0-4.8) k/uL POC Glucose (mg/dL) 139 H 115 H 136 H (70-110) mg/dL 05/29/23 Range/Units 12:31 WBC 15.8 H (3.8-10.6) k/uL Neutrophils # 14.3 H (1.3-7.7) k/uL Lymphocytes # 0.8 L (1.0-4.8) k/uL POC Glucose (mg/dL) (70-110) mg/dL Assessment and Plan Plan: 1patient presented to hospital with heartburn nausea vomiting and did have some sore throat with significant narrowing seen on the CT concern for possible angioedema at this has been recurrent episode for him this being the sixth episode and apparently patient is correlating symptom onset after ingestion of specific beer maybe likely treating factor 2-patient has been advised to stay away from the specific brand of pill that may have been initiating this episode of angioedema for him 3-keeping in mind some prevertebral cellulitis Unasyn is a good choice to cover for the possible component of cellulitis Flagyl be discontinued Question concern answered We will follow on clinical condition and cultures to further adjust medication if needed Thank you for this consultation we will follow the patient along with you Dictation was produced using [employer] dictation software. please excuse any grammatical, word or spelling errors. Time with Patient: Greater than 30
[2023-05-30] MEDS: methylPREDNISolone SOD SUCCI 125 MG/2 ML VIAL IV SCH (05:22)
[2023-05-30 07:04] LABS: Glucose,Whole Blood 261 mg/dL (70-110)
[2023-05-30 08:49] VITALS: RESP 16
[2023-05-30 11:06] LABS: Basophils # (A) 0.02 X 10*3/uL (0.00-0.10); Basophils % (A) 0.2 %; Eosinophils # (A) 0.02 X 10*3/uL (0.04-0.35); Eosinophils % (A) 0.2 %; Lymphocytes # (A) 0.84 X 10*3/uL (0.90-5.00); Lymphocytes % (A) 6.3 %; MCH 28.4 pg (27.0-32.0); MCHC 32.6 g/dL (32.0-37.0); MCV 87.2 FL (80.0-97.0); Mean Platelet Volume 11.7 FL (9.5-12.2); Monocytes # (A) 0.63 X 10*3/uL (0.20-1.00); Monocytes % (A) 4.8 %; NRBC Per 100 WBC 0 X 10*3/uL (0.00-0.01); Neutrophils # (A) 11.64 X 10*3/uL (1.80-7.70); Neutrophils % (A) 87.9 %; Platelet Count 254 X 10*3/uL (140-440); RBC 4.93 X 10*6/uL (4.40-5.60); RDW 13.4 % (11.5-14.5); WBC 13.23 X 10*3/uL (4.50-10.00)
[2023-05-30 11:25] LABS: Blood Urea Nitrogen 25.3 mg/dL (9.0-27.0); Calcium 8.9 mg/dL (8.7-10.3); Carbon Dioxide 29.4 mmol/L (21.6-31.8); Chloride 97 mmol/L (96-109); Glucose 212 mg/dL (70-110); Potassium 4.5 mmol/L (3.5-5.5); Sodium 139 mmol/L (135-145)
[2023-05-30 12:19] LABS: Glucose,Whole Blood 334 mg/dL (70-110)
--- NOTE | 2023-05-30 12:35 | P.PN ---
Subjective Progress Note Date: 05/30/23 Principal diagnosis: Reason for follow-up is leukocytosis abnormal CT question of angioedema Patient is a 62-year-old male with a past medical history significant for diabetes mellitus reflux hypertension also have a history of recurrent throat swelling/dysphagia this being his sixth episode, patient presented with the reflux difficulty breathing and tongue swelling did have elevated white count CT of the neck did show significant soft tissue and mucosal swelling of the oropharynx and hypopharynx area concerning for angioedema/cellulitis. On today's visit that is 05/30/2023,the patient remains to be afebrile, patient is on room air not requiring supplemental oxygen and denies any shortness of breath no chest pain or cough.Patient denies having any nausea or vomiting, no abdominal pain and no diarrhea has been reported feeling better today. Patient white count is down to 13.23 creatinine is 1.1 Objective - Vital Signs Vital signs: Vital Signs Temp 97.4 F L 05/30/23 07:07 Pulse 61 05/30/23 07:07 Resp 16 05/30/23 07:07 BP 111/66 05/30/23 07:07 Pulse Ox 100 05/30/23 07:07 FiO2 Intake & Output 05/29/23 05/30/23 05/30/23 18:59 06:59 18:59 Intake Total 1200 1600 Output Total 1800 Balance -600 1600 Intake: Intake, IV Titration 1200 1100 Amount Ampicillin-Sulbactam 3 gm 200 200 In Sodium Chloride 0.9% 100 ml @ 200 mls/hr IVPB Q6H [facility] Rx#:[id number] Sodium Chloride 0.9% 1, 900 900 000 ml @ 75 mls/hr IV . [id number] [facility] Rx#:[id number] metroNIDAZOLE-NS PMX 500 100 mg In Saline 1 100ml.bag @ 100 mls/hr IVPB Q8HR [facility] Rx#:[id number] Oral 500 Output: Urine 1800 Other: Voiding Method Urinal Urinal # Voids 3 - Exam GENERAL DESCRIPTION: Middle-age male up in the chair in no distress RESPIRATORY SYSTEM: Unlabored breathing , clear to auscultation HEART: S1 S2 regular rate and rhythm , ABDOMEN: Soft , no tenderness EXTREMITIES: No edema feet - Labs CBC & Chem 7: 05/30/23 05:30 05/30/23 05:30 Labs: Abnormal Lab Results - Last 24 Hours (Table) 05/29/23 05/29/23 05/29/23 Range/Units 12:31 12:31 17:07 WBC 15.8 H (3.8-10.6) k/uL Immature Gran # (0.00-0.04) X 10*3/uL Neutrophils # 14.3 H (1.3-7.7) k/uL Lymphocytes # 0.8 L (1.0-4.8) k/uL Eosinophils # (0.04-0.35) X 10*3/uL Carbon Dioxide 34 H (22-30) mmol/L Anion Gap (4.00-12.00) mmol/L BUN/Creatinine Ratio (12.00-20.00) Ratio Glucose (70-110) mg/dL POC Glucose (mg/dL) 124 H (70-110) mg/dL C-Reactive Protein 7.1 H (<1.0) mg/dL 05/29/23 05/30/23 05/30/23 Range/Units 20:04 05:30 05:30 WBC 13.23 H (3.8-10.6) k/uL Immature Gran # 0.08 H (0.00-0.04) X 10*3/uL Neutrophils # 11.64 H (1.3-7.7) k/uL Lymphocytes # 0.84 L (1.0-4.8) k/uL Eosinophils # 0.02 L (0.04-0.35) X 10*3/uL Carbon Dioxide (22-30) mmol/L Anion Gap 12.60 H (4.00-12.00) mmol/L BUN/Creatinine Ratio 23.00 H (12.00-20.00) Ratio Glucose 212 H (70-110) mg/dL POC Glucose (mg/dL) 254 H (70-110) mg/dL C-Reactive Protein 8.80 H (<1.0) mg/dL 05/30/23 05/30/23 Range/Units 07:03 12:18 WBC (3.8-10.6) k/uL Immature Gran # (0.00-0.04) X 10*3/uL Neutrophils # (1.3-7.7) k/uL Lymphocytes # (1.0-4.8) k/uL Eosinophils # (0.04-0.35) X 10*3/uL Carbon Dioxide (22-30) mmol/L Anion Gap (4.00-12.00) mmol/L BUN/Creatinine Ratio (12.00-20.00) Ratio Glucose (70-110) mg/dL POC Glucose (mg/dL) 261 H 334 H (70-110) mg/dL C-Reactive Protein (<1.0) mg/dL Assessment and Plan (1) Abnormal CT scan, neck Current Visit: Yes Status: Acute Code(s): R93.89 - ABNORMAL FINDINGS ON DX IMAGING OF OTH BODY STRUCTURES SNOMED Code(s): 966158774 (2) Angioedema Current Visit: Yes Status: Acute Code(s): T78.3XXA - ANGIONEUROTIC EDEMA, INITIAL ENCOUNTER SNOMED Code(s): 60981393 (3) Leukocytosis Current Visit: Yes Status: Acute Code(s): D72.829 - ELEVATED WHITE BLOOD CELL COUNT, UNSPECIFIED SNOMED Code(s): 652527127 Plan: 1patient presented to hospital with heartburn nausea vomiting and did have some sore throat with significant narrowing seen on the CT concern for possible angioedema at this has been recurrent episode for him this being the sixth e pisode and apparently patient is correlating symptom onset after ingestion of specific beer maybe likely treating factor versus lisinopril which has been discontinued 2-patient also have prevertebral cellulitis Unasyn is a good choice to cover for the possible component of cellulitis and the white count seems to be trending down with it we will continue while inpatient and transition to oral Augmentin on discharge Dictation was produced using [employer] dictation software. please excuse any grammatical, word or spelling errors. Time with Patient: Less than 30
[2023-05-30 12:56] VITALS: BP 125/81; PULSE 63; TEMP 98.3
--- NOTE | 2023-05-30 14:30 | P.DS ---
Providers Date of admission: 05/27/23 11:22 Expected date of discharge: 05/30/23 Attending physician: Manju Edwards DO Consults: 05/29/23 08:26 Consult Physician Routine Consulting Provider: Gus Hazel Consult Reason/Comments: laryngeal swelling, superior esophageal swelling Do you want consulting provider notified?: Yes 05/29/23 08:50 Consult Physician Routine Consulting Provider: Alyssa Moon Consult Reason/Comments: pharyngeal cellulitis Do you want consulting provider notified?: Yes Primary care physician: Physician Nonstaff Hospital Course: Intractable nausea, vomiting Odynophagia due to angioedema from Lisinopril Pre-vertebral cellulitis Hypertensive urgency Hyperglycemia secondary to type 2 diabetes Hyperlipidemia 62-year-old man with a history of hypertension, diabetes, hyperlipidemia presented for evaluation of nausea/vomiting. Patient was seen at [facility] and underwent [address] scans, both of which were negative for acute abdominal pathology. However, due to concern for intractable nausea/vomiting, patient was transferred to [facility] for further evaluation. In [place], patient was noted to be hypertensive to 170/100 and borderline tachycardic in the 100s, but remained afebrile. CBC, basic metabolic panel, liver function tests, UA were mostly unremarkable. In the emergency room, patient was afebrile, 148/92, heart rate 107, 90% on room air. CBC demonstrated leukocytosis of 28.4. Basic metabolic panel showed BUN 25. Lactic acid was 2.4. Liver function tests are unremarkable. Acetone is negative. Influenza A, B, RSV, COVID were negative. Repeat lactic acid is 1.8. Patient was admitted to the hospital for intractable nausea, vomiting. Pt was started on reglan ACHS, and after 24 hours of hospitalization, he felt improved back to baseline, was able to tolerate medications and diet. Pt continued to report odynophagia and as such ENT and ID were consulted after CT Neck identified prevertebral inflammation and swelling of laryngeal structures and upper esophagus. Pt was started on unasyn, and transitioned to augmentin on discharge to complete 7 days. He was started on steroids and discharged on prednisone to complete 5 days. Pt discharged home with PCP f/u and new script for reglan ACHS PRN for nausea. I spent 38 minutes coordinating this discharge Gen: in no apparent distress, resting comfortably in bed Eyes: PERRL, no scleral injection or icterus HENT: normocephalic, atraumatic, good hearing acuity, moist mucous membranes Neck: no tracheal deviation, full range of motion Resp: good air exchange, breathing comfortably with no accessory muscle use, no tactile fremitus, clear to auscultation bilaterally CVS: good distal perfusion x 4, no pitting edema GI: soft, NTTP, ND, no hepatosplenomegaly : no suprapubic tenderness, no CVAT, juarez catheter not present MSK: no clubbing, no cyanosis, no noted contractures of extremities Skin: no noted rashes, petechiae; temperature of skin is appropriate Neuro: moving all extremities without signs of weakness, CN II-XII intact Psych: cooperative, euthymic mood, insight and judgment intact Patient Condition at Discharge: Good Plan - Discharge Summary New Discharge Prescriptions: New amLODIPine [Norvasc] 10 mg PO DAILY #30 tab Metoclopramide [Reglan] 5 mg PO ACHS PRN #30 tab PRN Reason: Nausea Acetaminophen Tab [Tylenol] 650 mg PO Q6HR PRN tab PRN Reason: Mild Pain Or Fever > 100.5 Amoxic-Pot Clav 875-125Mg [Augmentin 875-125] 1 tab PO BID 6 Days #12 tab predniSONE 50 mg PO DAILY #5 tab Continue cloNIDine HCL [Catapres] 0.2 mg PO BID Simvastatin [Zocor] 40 mg PO HS Nortriptyline [Pamelor] 50 mg PO HS Ondansetron Odt [Zofran ODT] 4 mg PO Q8HR PRN PRN Reason: Nausea And Vomiting Insulin Glargine,Hum.rec.anlog [Lantus Solostar Pen] 40 units SQ DAILY Insulin Glargine,Hum.rec.anlog [Lantus Solostar Pen] 45 units SQ HS Dapagliflozin Propanediol [Farxiga] 10 mg PO DAILY Omeprazole 20 mg PO DAILY atenoloL [Tenormin] 100 mg PO DAILY Discontinued lisinopriL 15 mg PO DAILY Indomethacin [Indocin] 50 mg PO BID-W/MEALS Discharge Medication List Nortriptyline [Pamelor] 50 mg PO HS 02/15/19 [History] Simvastatin [Zocor] 40 mg PO HS 02/15/19 [History] cloNIDine HCL [Catapres] 0.2 mg PO BID 02/15/19 [History] Dapagliflozin Propanediol [Farxiga] 10 mg PO DAILY 05/27/23 [History] Insulin Glargine,Hum.rec.anlog [Lantus Solostar Pen] 40 units SQ DAILY 05/27/23 [History] Insulin Glargine,Hum.rec.anlog [Lantus Solostar Pen] 45 units SQ HS 05/27/23 [History] Omeprazole 20 mg PO DAILY 05/27/23 [History] Ondansetron Odt [Zofran ODT] 4 mg PO Q8HR PRN 05/27/23 [History] atenoloL [Tenormin] 100 mg PO DAILY 05/27/23 [History] Acetaminophen Tab [Tylenol] 650 mg PO Q6HR PRN tab 05/28/23 [Rx] Metoclopramide [Reglan] 5 mg PO ACHS PRN #30 tab 05/28/23 [Rx] Amoxic-Pot Clav 875-125Mg [Augmentin 875-125] 1 tab PO BID 6 Days #12 tab 05/30/23 [Rx] amLODIPine [Norvasc] 10 mg PO DAILY #30 tab 05/30/23 [Rx] predniSONE 50 mg PO DAILY #5 tab 05/30/23 [Rx] Follow up Appointment(s)/Referral(s): None,Stated [REFERRING] - 1-2 days Patient Instructions/Handouts: Metoclopramide (By mouth), Dehydration (DC), Acute Nausea and Vomiting (DC), Leukocytosis (DC), Lactic Acidosis (GEN) Discharge Disposition: HOME SELF-CARE
== END 2023-05-30 16:58 | disposition home or self-care (01) | DRG 916 ==
LOC: EC 09:29 → 5NMEDONC 11:22
PROVIDERS: ADMIT Internal Medicine; ATTEND Internal Medicine
PROC: 0CJS8ZZ Inspection of Larynx, Via Natural or Artificial Opening Endoscopic (ICD-10-PCS; principal; 2023-05-29)
DX: T78.3XXA Angioneurotic edema, initial encounter (principal); E87.20 Acidosis, unspecified; J39.1 Other abscess of pharynx; G24.01 Drug induced subacute dyskinesia; T46.4X5A Adverse effect of angiotensin-converting-enzyme inhibitors, initial encounter; R13.14 Dysphagia, pharyngoesophageal phase; I10 Essential (primary) hypertension; E11.65 Type 2 diabetes mellitus with hyperglycemia; I16.0 Hypertensive urgency; E78.5 Hyperlipidemia, unspecified; R11.2 Nausea with vomiting, unspecified; E86.0 Dehydration; K21.9 Gastro-esophageal reflux disease without esophagitis; Z79.4 Long term (current) use of insulin; Z79.84 Long term (current) use of oral hypoglycemic drugs; Z79.899 Other long term (current) drug therapy; Z82.49 Family history of ischemic heart disease and other diseases of the circulatory system; Z11.52 Encounter for screening for COVID-19; Z88.8 Allergy status to other drugs, medicaments and biological substances
CPT/HCPCS: 36415; 70491; 80048; 80053; 80076; 82009; 83605; 83735; 85025; 85027; 86140; 86161; 87636; 96361; 96374; 96375; 99285

== ENCOUNTER 2023-07-21 10:06 | Emergency (ER) | payer OTHER ==
[2023-07-21 10:51] VITALS: TEMP 98
[2023-07-21] MEDS: SODIUM CHLORIDE 0.9% 1,000 ML IV ONE (11:15)
[2023-07-21 11:32] LABS: Basophils # (A) 0.1 k/uL (0-0.2); Basophils % (A) 0 %; Eosinophils % (A) 0 %; HCT 46.3 % (39.0-53.0); HGB 14.9 gm/dL (13.0-17.5); Lymphocytes # (A) 1.2 k/uL (1.0-4.8); Lymphocytes % (A) 9 %; MCH 28.2 pg (25.0-35.0); MCHC 32.3 g/dL (31.0-37.0); MCV 87.4 fL (80.0-100.0); Mean Platelet Volume 9.1; Monocytes # (A) 0.5 k/uL (0-1.0); Monocytes % (A) 4 %; Neutrophils # (A) 11.4 k/uL (1.3-7.7); Neutrophils % (A) 86 %; Platelet Count 247 k/uL (150-450); RDW 13.8 % (11.5-15.5); WBC 13.3 k/uL (3.8-10.6)
--- NOTE | 2023-07-21 11:52 | ED ---
General Adult HPI - General Chief complaint: Headache Stated complaint: Migraines Time Seen by Provider: 07/21/23 10:23 Source: patient, RN notes reviewed Mode of arrival: ambulatory Limitations: no limitations - History of Present Illness Initial comments: 62-year-old male presents emergency department complaint of headaches. Patient states that he had a headache yesterday states he was intense migraine which she has used in the past though symptoms have resolved but states he still had some nausea and had episode of vomiting he is concerned that he has issues with his diabetes and this is a weight usually presents. He denies any focal weakness denies fever denies neck pain neck stiffness no chest pain no shortness of breath he states other than some upset stomach he has no other complaints currently. - Related Data Home Medications Medication Instructions Recorded Confirmed Nortriptyline [Pamelor] 50 mg PO HS 02/15/19 07/21/23 Simvastatin [Zocor] 40 mg PO HS 02/15/19 07/21/23 cloNIDine HCL [Catapres] 0.2 mg PO BID 02/15/19 07/21/23 Dapagliflozin Propanediol [Farxiga] 10 mg PO DAILY 05/27/23 07/21/23 Insulin Glargine,Hum.rec.anlog 40 units SQ DAILY 05/27/23 07/21/23 [Lantus Solostar Pen] Insulin Glargine,Hum.rec.anlog 45 units SQ HS 05/27/23 07/21/23 [Lantus Solostar Pen] Omeprazole 20 mg PO HS 05/27/23 07/21/23 atenoloL [Tenormin] 100 mg PO DAILY 05/27/23 07/21/23 Indomethacin [Indocin] 50 mg PO BID-W/MEALS 07/21/23 07/21/23 Previous Rx's Medication Instructions Recorded amLODIPine [Norvasc] 10 mg PO DAILY #30 tab 05/30/23 Magnesium Oxide [Magox 400] 400 mg PO ONCE #30 tablet 07/21/23 Allergies Allergy/AdvReac Type Severity Reaction Status Date / Time prochlorperazine AdvReac CONVULSIONS Verified 07/21/23 12:49 [From Compazine] Review of Systems ROS Statement: Those systems with pertinent positive or pertinent negative responses have been documented in the HPI. ROS Other: All systems not noted in ROS Statement are negative. Past Medical History Past Medical History: Diabetes Mellitus, GERD/Reflux, Hypertension History of Any Multi-Drug Resistant Organisms: None Reported Past Surgical History: No Surgical Hx Reported Past Anesthesia/Blood Transfusion Reactions: No Reported Reaction Past Psychological History: No Psychological Hx Reported Smoking Status: Never smoker - Past Family History Father Additional Family Medical History / Comment(s): Bowel resection with colostomy. Mother Family Medical History: CVA/TIA, Hypertension, Myocardial Infarction ([place]) General Exam Limitations: no limitations General appearance: alert, in no apparent distress Head exam: Present: atraumatic, normocephalic, normal inspection Eye exam: Present: normal appearance, PERRL, EOMI. Absent: scleral icterus, conjunctival injection, periorbital swelling ENT exam: Present: normal exam, normal oropharynx, mucous membranes moist Neck exam: Present: normal inspection, full ROM. Absent: tenderness, mening ismus, lymphadenopathy Respiratory exam: Present: normal lung sounds bilaterally. Absent: respiratory distress, wheezes, rales, rhonchi, stridor Cardiovascular Exam: Present: regular rate, normal rhythm, normal heart sounds. Absent: systolic murmur, diastolic murmur, rubs, gallop, clicks GI/Abdominal exam: Present: soft, normal bowel sounds. Absent: distended, tenderness, guarding, rebound, rigid Neurological exam: Present: alert, oriented X3, reflexes normal. Absent: motor sensory deficit Skin exam: Present: warm, dry, intact, normal color. Absent: rash Course Vital Signs 07/21/23 07/21/23 07/21/23 10:07 12:34 13:10 Temperature 98 F Pulse Rate 98 95 Respiratory 16 20 Rate Blood Pressure 181/80 197/129 165/102 O2 Sat by Pulse 95 97 Oximetry Medical Decision Making - Medical Decision Making Was pt. sent in by a medical professional or institution (, PA, PUBLICITY PERSON, urgent care, hospital, or long term...) When possible be specific @ -No Did you speak to anyone other than the patient for history (EMS, parent, family, police, friend...)? What history was obtained from this source @ -No Did you review nursing and triage notes (agree or disagree)? Why? @ -I reviewed and agree with nursing and triage notes Were old charts reviewed (outside hosp., previous admission, EMS record, old EKG, old radiological studies, urgent care reports/EKG's, long term records)? Report findings @ -No old charts were reviewed Differential Diagnosis (chest pain, altered mental status, abdominal pain women, abdominal pain men, vaginal bleeding, weakness, fever, dyspnea, syncope, headache, dizziness, GI bleed, back pain, seizure, CVA, palpatations, mental health, musculoskeletal)? @ -Differential Headache: Migraine, tension, cluster, carbon monoxide, central venous thrombosis, pension karma temporal arteritis, acute closure glaucoma, intercranial hemorrhage, mastoiditis, sinusitis, head injury, this is not meant to be an all-inclusive list. EKG interpreted by me (3pts min.). @ -No X-rays interpreted by me (1pt min.). @ -None done CT interpreted by me (1pt min.). @ -None done U/S interpreted by me (1pt. min.). @ -None done What testing was considered but not performed or refused? (CT, X-rays, U/S, labs)? Why? @ -None What meds were considered but not given or refused? Why? @ -None Did you discuss the management of the patient with other professionals (professionals i.e. , PA, PUBLICITY PERSON, lab, RT, psych nurse, medical social worker, sales executive insurance, teacher, disability hearing officer, case management assistant)? Give summary @ -No Was smoking cessation discussed for >3mins.? @ -No Was critical care preformed (if so, how long)? @ -No Were there social determinants of health that impacted care today? How? (Homelessness, low income, unemployed, alcoholism, drug addiction, transportation, low edu. Level, literacy, decrease access to med. care, nursing home, rehab)? @ -No Was there de-escalation of care discussed even if they declined (Discuss DNR or withdrawal of care, Hospice)? DNR status @ -No What co-morbidities impacted this encounter? (DM, HTN, Smoking, COPD, CAD, Ca ncer, CVA, ARF, Chemo, Hep., AIDS, mental health diagnosis, sleep apnea, morbid obesity)? @ -[Diabetes, hypertension Was patient admitted / discharged? Hospital course, mention meds given and route, prescriptions, significant lab abnormalities, going to OR and other pertinent info. @ -Discharge patient states he feels greatly improved he presented for headache that resolved yesterday he did have some nausea this morning patient's laboratory studies show evidence of mild hyperglycemia, hypomagnesemia patient was given replacement, given antiemetics he states he is asymptomatic and denies chest pain. Patient was given hydralazine for his blood pressure as he has not taken his blood pressure meds today. Undiagnosed new problem with uncertain prognosis? @ -No Drug Therapy requiring intensive monitoring for toxicity (Heparin, Nitro, Insulin, Cardizem)? @ -No Were any procedures done? @ -No Diagnosis/symptom? @ -Hypomagnesemia, headache, hypertension, hyperglycemia Acute, or Chronic, or Acute on Chronic? @ -Acute Uncomplicated (without systemic symptoms) or Complicated (systemic symptoms)? @ -Uncomplicated Side effects of treatment? @ -No Exacerbation, Progression, or Severe Exacerbation? @ -No Poses a threat to life or bodily function? How? (Chest pain, [place], [place], pneumonia, PE, COPD, DKA, ARF, appy, cholecystitis, CVA, Diverticulitis, Homicidal, Suicidal, threat to staff... and all critical care pts) @ -No - Lab Data Result diagrams: 07/21/23 11:18 07/21/23 11:18 Lab Results 07/21/23 07/21/23 07/21/23 Range/Units 11:18 11:18 12:40 WBC 13.3 H (3.8-10.6) k/uL RBC 5.30 (4.30-5.90) m/uL Hgb 14.9 (13.0-17.5) gm/dL Hct 46.3 (39.0-53.0) % MCV 87.4 (80.0-100.0) fL MCH 28.2 (25.0-35.0) pg MCHC 32.3 (31.0-37.0) g/dL RDW 13.8 (11.5-15.5) % Plt Count 247 (150-450) k/uL MPV 9.1 Neutrophils % 86 % Lymphocytes % 9 % Monocytes % 4 % Eosinophils % 0 % Basophils % 0 % Neutrophils # 11.4 H (1.3-7.7) k/uL Lymphocytes # 1.2 (1.0-4.8) k/uL Monocytes # 0.5 (0-1.0) k/uL Eosinophils # 0.0 (0-0.7) k/uL Basophils # 0.1 (0-0.2) k/uL Sodium 139 (137-145) mmol/L Potassium 4.1 (3.5-5.1) mmol/L Chloride 99 (98-107) mmol/L Carbon Dioxide 31 H (22-30) mmol/L Anion Gap 9 mmol/L BUN 12 (9-20) mg/dL Creatinine 0.87 (0.66-1.25) mg/dL Est GFR (CKD-EPI)AfAm >90 (>60 ml/min/1.73 sqM) Est GFR (CKD-EPI)NonAf >90 (>60 ml/min/1.73 sqM) Glucose 219 H (74-99) mg/dL Calcium 9.4 (8.4-10.2) mg/dL Magnesium 1.2 L (1.6-2.3) mg/dL Total Bilirubin 0.8 (0.2-1.3) mg/dL AST 18 (17-59) U/L ALT 16 (4-49) U/L Alkaline Phosphatase 153 H (38-126) U/L Total Protein 7.9 (6.3-8.2) g/dL Albumin 4.4 (3.5-5.0) g/dL Urine Color Colorless Urine Appearance Clear (Clear) Urine pH 7.5 (5.0-8.0) Ur Specific Ramer 1.010 (1.001-1.035) Urine Protein Trace H (Negative) Urine Glucose (UA) Trace H (Negative) Urine Ketones 1+ H (Negative) Urine Blood Negative (Negative) Urine Nitrite Negative (Negative) Urine Bilirubin Negative (Negative) Urine Urobilinogen <2.0 (<2.0) mg/dL Ur Leukocyte Esterase Negative (Negative) Disposition Clinical Impression: Hypomagnesemia, Hypertension, Hyperglycemia, Headache Disposition: HOME SELF-CARE Condition: Stable Instructions (If sedation given, give patient instructions): Hypomagnesemia (ED) Additional Instructions: Please return to the Emergency Department if symptoms worsen or any other concerns. Prescriptions: Magnesium Oxide [Magox 400] 400 mg PO ONCE #30 tablet Is patient prescribed a controlled substance at d/c from ED?: No Referrals: Frederick Camejo MD [Primary Care Provider] - 1-2 days Time of Disposition: 13:39
[2023-07-21 12:08] LABS: ALT 16 U/L (4-49); AST 18 U/L (17-59); African American GFR (CKD) >90 (>60 ml/min/1.73 sqM); Albumin 4.4 g/dL (3.5-5.0); Alkaline Phosphatase 153 U/L (38-126); Anion Gap 9 mmol/L; Blood Urea Nitrogen 12 mg/dL (9-20); Calcium 9.4 mg/dL (8.4-10.2); Carbon Dioxide 31 mmol/L (22-30); Chloride 99 mmol/L (98-107); Glucose 219 mg/dL (74-99); Magnesium 1.2 mg/dL (1.6-2.3); Non-African American GFR(CKD) >90 (>60 ml/min/1.73 sqM); Potassium 4.1 mmol/L (3.5-5.1); Sodium 139 mmol/L (137-145); Total Bilirubin 0.8 mg/dL (0.2-1.3); Total Protein 7.9 g/dL (6.3-8.2)
[2023-07-21] MEDS: MAGNESIUM OXIDE 400 MG TAB PO STA (12:36)
[2023-07-21] MEDS: MAGNESIUM SULFATE-D5W PMX 1 GM in DEXTROSE/WATER 1 100ML.BAG IVPB ONE (12:38)
[2023-07-21 12:47] LABS: Appearance,Urine Clear (Clear); Bilirubin,Urine Negative (Negative); Blood,Urine Negative (Negative); Color,Urine Colorless; Glucose,Urine (UA) Trace (Negative); Ketones,Urine 1+ (Negative); Leukocyte Esterase,Urine Negative (Negative); Nitrite,Urine Negative (Negative); PH, Urine 7.5 (5.0-8.0); Protein,Urine Trace (Negative); Urobilinogen,Urine <2.0 mg/dL (<2.0)
[2023-07-21] MEDS: hydrALAZINE HCL 20 MG/ML 1 ML VIAL IVP STA ×2 (13:12→14:08)
[2023-07-21 15:18] VITALS: BP 147/85; PULSE 104; RESP 20
== END 2023-07-21 14:38 | disposition home or self-care (01) ==
LOC: EC 10:06
DX: I10 Essential (primary) hypertension (principal); E11.65 Type 2 diabetes mellitus with hyperglycemia; E83.42 Hypomagnesemia; R51.9 Headache, unspecified; Z88.8 Allergy status to other drugs, medicaments and biological substances
CPT/HCPCS: 36415; 80053; 83735; 85025; 81003; 99283; 96365; 96375; 96376; 96361; J0360; J3475

== ENCOUNTER 2023-07-22 09:30 | Emergency (ER) | payer OTHER ==
[2023-07-22 09:42] VITALS: TEMP 98.1
--- NOTE | 2023-07-22 09:49 | ED ---
General Adult HPI - General Chief complaint: Nausea/Vomiting/Diarrhea Stated complaint: vomiting Time Seen by Provider: 07/22/23 09:35 Source: patient, RN notes reviewed, old records reviewed Mode of arrival: ambulatory Limitations: no limitations - History of Present Illness Initial comments: This is a 62-year-old male who presents to the emergency department complaining of nausea and vomiting. Patient states he was here yesterday for the same. Pat ient states he has had this happen many times over the last couple years. Patient states he does use marijuana on a regular basis. Patient denies any abdominal pain just abdominal cramping. Patient denies any chest pain difficult breathing or shortness of breath. Patient is any fever chills or cough or patient has any diarrhea. Patient states when he left the ER yesterday he was feeling considerably better. - Related Data Home Medications Medication Instructions Recorded Confirmed Nortriptyline [Pamelor] 50 mg PO HS 02/15/19 07/22/23 Simvastatin [Zocor] 40 mg PO HS 02/15/19 07/22/23 cloNIDine HCL [Catapres] 0.2 mg PO BID 02/15/19 07/22/23 Dapagliflozin Propanediol [Farxiga] 10 mg PO DAILY 05/27/23 07/22/23 Insulin Glargine,Hum.rec.anlog 40 units SQ DAILY 05/27/23 07/22/23 [Lantus Solostar Pen] Insulin Glargine,Hum.rec.anlog 45 units SQ HS 05/27/23 07/22/23 [Lantus Solostar Pen] Omeprazole 20 mg PO HS 05/27/23 07/22/23 atenoloL [Tenormin] 100 mg PO DAILY 05/27/23 07/22/23 Indomethacin [Indocin] 50 mg PO BID-W/MEALS 07/21/23 07/22/23 Magnesium Oxide [Magox 400] 400 mg PO DIRECTED 07/22/23 07/22/23 Previous Rx's Medication Instructions Recorded amLODIPine [Norvasc] 10 mg PO DAILY #30 tab 05/30/23 Ondansetron [Zofran] 4 mg PO Q8HR PRN #10 tab 07/22/23 Allergies Allergy/AdvReac Type Severity Reaction Status Date / Time prochlorperazine AdvReac CONVULSIONS Verified 07/22/23 10:06 [From Compazine] Review of Systems ROS Statement: Those systems with pertinent positive or pertinent negative responses have been documented in the HPI. ROS Other: All systems not noted in ROS Statement are negative. Past Medical History Past Medical History: Diabetes Mellitus, GERD/Reflux, Hypertension History of Any Multi-Drug Resistant Organisms: None Reported Past Surgical History: No Surgical Hx Reported Past Anesthesia/Blood Transfusion Reactions: No Reported Reaction Past Psychological History: No Psychological Hx Reported Smoking Status: Never smoker Past Alcohol Use History: Occasional Past Drug Use History: Marijuana - Past Family History Father Additional Family Medical History / Comment(s): Bowel resection with colostomy. Mother Family Medical History: CVA/TIA, Hypertension, Myocardial Infarction (SD) General Exam - General Exam Comments Initial Comments: GENERAL: Patient is well-developed and well-nourished. Patient is nontoxic and well- hydrated and is in mild distress. ENT: Neck is soft and supple. No significant lymphadenopathy is noted. Oropharynx is clear. Moist mucous membranes. Neck has full range of motion without eliciting any pain. EYES: The sclera were anicteric and conjunctiva were pink and moist. Extraocular movements were intact and pupils were equal round and reactive to light. Eyelids were unremarkable. PULMONARY: Unlabored respirations. Good breath sounds bilaterally. No audible rales rhonchi or wheezing was noted. CARDIOVASCULAR: There is a regular rate and rhythm without any murmurs gallops or rubs. ABDOMEN: Soft and nontender with normal bowel sounds. SKIN: Skin is clear with no lesions or rashes and otherwise unremarkable. NEUROLOGIC: Patient is alert and oriented x3. Cranial nerves II through XII are grossly intact. Motor and sensory are also intact. Normal speech, volume and content. Symmetrical smile. MUSCULOSKELETAL: Normal extremities with adequate strength and full range of motion. No lower extremity swelling or edema. No calf tenderness. LYMPHATICS: No significant lymphadenopathy is noted PSYCHIATRIC: Normal psychiatric evaluation. Limitations: no limitations Course Vital Signs 07/22/23 07/22/23 07/22/23 09:32 10:39 11:02 Temperature 98.1 F Pulse Rate 119 H 99 Respiratory 24 18 Rate Blood Pressure 205/117 195/123 163/101 O2 Sat by Pulse 99 98 Oximetry 07/22/23 07/22/23 11:54 14:07 Temperature Pulse Rate 84 Respiratory 18 Rate Blood Pressure 158/96 154/93 O2 Sat by Pulse 99 Oximetry Medical Decision Making - Medical Decision Making EKG is interpreted by myself but EKG shows a sinus tachycardia at 110 bpm UT interval is 178 QRS is 101 QT interval 345 QTc is 410. Patient's EKG shows no ST segment ovation or depression. Was pt. sent in by a medical professional or institution (, LYNDSEY, ACETALDEHYDE CONVERTER OPERATOR, urgent care, hospital, or custodial...) When possible be specific @ -No Did you speak to anyone other than the patient for history (EMS, parent, family, police, friend...)? What history was obtained from this source @ -No Did you review nursing and triage notes (agree or disagree)? Why? @ -I reviewed and agree with nursing and triage notes Were old charts reviewed (outside hosp., previous admission, EMS record, old EKG, old radiological studies, urgent care reports/EKG's, custodial records)? Report findings @ -I have reviewed prior visits with this patient and he has had multiple visits for vomiting acutely over the last few years. Differential Diagnosis (chest pain, altered mental status, abdominal pain women, abdominal pain men, vaginal bleeding, weakness, fever, dyspnea, syncope, headache, dizziness, GI bleed, back pain, seizure, CVA, palpatations, mental health, musculoskeletal)? @ -Viral syndrome, gastritis, cyclic vomiting syndrome, pancreatitis, this is not an all-inclusive list EKG interpreted by me (3pts min.). @ -As above X-rays interpreted by me (1pt min.). @ -None done CT interpreted by me (1pt min.). @ -None done U/S interpreted by me (1pt. min.). @ -None done What testing was considered but not performed or refused? (CT, X-rays, U/S, labs)? Why? @ -None What meds were considered but not given or refused? Why? @ -None Did you discuss the management of the patient with other professionals (professionals i.e. , LYNDSEY, ACETALDEHYDE CONVERTER OPERATOR, lab, RT, psych nurse, social scientist, principal network architect, teacher, precinct commanding officer, manager case)? Give summary @ -No Was smoking cessation discussed for >3mins.? @ -No Was critical care preformed (if so, how long)? @ -No Were there social determinants of health that impacted care today? How? (Homelessness, low income, unemployed, alcoholism, drug addiction, transpo rtation, low edu. Level, literacy, decrease access to med. care, shelter, rehab)? @ -No Was there de-escalation of care discussed even if they declined (Discuss DNR or withdrawal of care, Hospice)? DNR status @ -No What co-morbidities impacted this encounter? (DM, HTN, Smoking, COPD, CAD, Cancer, CVA, ARF, Chemo, Hep., AIDS, mental health diagnosis, sleep apnea, morbid obesity)? @ -None Was patient admitted / discharged? Hospital course, mention meds given and route, prescriptions, significant lab abnormalities, going to OR and other pertinent info. @ -Patient was given 2 and half liters of fluid and Zofran. It did make the patient feel little bit better however he continued to vomit occasionally so patient was given droperidol and that stopped his vomiting and he was without vomiting for at least a couple hours. Patient was also given magnesium sulfate 2 g. Undiagnosed new problem with uncertain prognosis? @ -No Drug Therapy requiring intensive monitoring for toxicity (Heparin, Nitro, Insulin, Cardizem)? @ -No Were any procedures done? @ -No Diagnosis/symptom? @ -Hypomagnesemia Acute, or Chronic, or Acute on Chronic? @ -Acute Uncomplicated (without systemic symptoms) or Complicated (systemic symptoms)? @ -Complicated Side effects of treatment? @ -No Exacerbation, Progression, or Severe Exacerbation? @ -No Poses a threat to life or bodily function? How? (Chest pain, [place], SD, pneumonia, PE, COPD, DKA, ARF, appy, cholecystitis, CVA, Diverticulitis, Homicidal, Suicidal, threat to staff... and all critical care pts) @ -No Diagnosis/symptom? @ -Cyclic vomiting Acute, or Chronic, or Acute on Chronic? @ -Acute Uncomplicated (without systemic symptoms) or Complicated (systemic symptoms)? @ -Complicated Side effects of treatment? @ -None Exacerbation, Progression, or Severe Exacerbation] @ -No Poses a threat to life or bodily function? @ -No - Lab Data Result diagrams: 07/22/23 09:53 07/22/23 09:53 Lab Results 07/22/23 07/22/23 07/22/23 Range/Units 09:53 09:53 09:53 WBC 28.0 H (3.8-10.6) k/uL RBC 5.68 (4.30-5.90) m/uL Hgb 16.2 (13.0-17.5) gm/dL Hct 49.6 (39.0-53.0) % MCV 87.4 (80.0-100.0) fL MCH 28.6 (25.0-35.0) pg MCHC 32.7 (31.0-37.0) g/dL RDW 14.1 (11.5-15.5) % Plt Count 335 (150-450) k/uL MPV 10.0 Neutrophils % 92 % Lymphocytes % 3 % Monocytes % 5 % Eosinophils % 0 % Basophils % 0 % Neutrophils # 25.7 H (1.3-7.7) k/uL Lymphocytes # 0.9 L (1.0-4.8) k/uL Monocytes # 1.3 H (0-1.0) k/uL Eosinophils # 0.0 (0-0.7) k/uL Basophils # 0.0 (0-0.2) k/uL Manual Slide Review Performed RBC Morphology Normal Sodium 140 (137-145) mmol/L Potassium 4.1 (3.5-5.1) mmol/L Chloride 95 L (98-107) mmol/L Carbon Dioxide 25 (22-30) mmol/L Anion Gap 20 mmol/L BUN 18 (9-20) mg/dL Creatinine 0.95 (0.66-1.25) mg/dL Est GFR (CKD-EPI)AfAm >90 (>60 ml/min/1.73 sqM) Est GFR (CKD-EPI)NonAf 87 (>60 ml/min/1.73 sqM) Glucose 354 H (74-99) mg/dL Lactic Ac Sepsis Rflx Plasma Lactic Acid Richard 5.9 H* (0.7-2.0) mmol/L Calcium 10.0 (8.4-10.2) mg/dL Magnesium (1.6-2.3) mg/dL Total Bilirubin 1.1 (0.2-1.3) mg/dL AST 21 (17-59) U/L ALT 32 (4-49) U/L Alkaline Phosphatase 168 H (38-126) U/L Total Protein 8.4 H (6.3-8.2) g/dL Albumin 4.9 (3.5-5.0) g/dL Amylase 44 (30-110) U/L Lipase 74 (23-300) U/L Urine Color Urine Appearance (Clear) Urine pH (5.0-8.0) Ur Specific [place] (1.001-1.035) Urine Protein (Negative) Urine Glucose (UA) (Negative) Urine Ketones (Negative) Urine Blood (Negative) Urine Nitrite (Negative) Urine Bilirubin (Negative) Urine Urobilinogen (<2.0) mg/dL Ur Leukocyte Esterase (Negative) Urine RBC (0-5) /hpf Urine WBC (0-5) /hpf Ur Squamous Epith Cells (0-4) /hpf Urine Bacteria (None) /hpf Urine Mucus (None) /hpf Acetone, Qual Negative (Negative) 07/22/23 07/22/23 07/22/23 Range/Units 09:53 10:53 11:51 WBC (3.8-10.6) k/uL RBC (4.30-5.90) m/uL Hgb (13.0-17.5) gm/dL Hct (39.0-53.0) % MCV (80.0-100.0) fL MCH (25.0-35.0) pg MCHC (31.0-37.0) g/dL RDW (11.5-15.5) % Plt Count (150-450) k/uL MPV Neutrophils % % Lymphocytes % % Monocytes % % Eosinophils % % Basophils % % Neutrophils # (1.3-7.7) k/uL Lymphocytes # (1.0-4.8) k/uL Monocytes # (0-1.0) k/uL Eosinophils # (0-0.7) k/uL Basophils # (0-0.2) k/uL Manual Slide Review RBC Morphology Sodium (137-145) mmol/L Potassium (3.5-5.1) mmol/L Chloride (98-107) mmol/L Carbon Dioxide (22-30) mmol/L Anion Gap mmol/L BUN (9-20) mg/dL Creatinine (0.66-1.25) mg/dL Est GFR (CKD-EPI)AfAm (>60 ml/min/1.73 sqM) Est GFR (CKD-EPI)NonAf (>60 ml/min/1.73 sqM) Glucose (74-99) mg/dL Lactic Ac Sepsis Rflx Y Plasma Lactic Acid Richard 3.1 H* (0.7-2.0) mmol/L Calcium (8.4-10.2) mg/dL Magnesium 1.4 L (1.6-2.3) mg/dL Total Bilirubin (0.2-1.3) mg/dL AST (17-59) U/L ALT (4-49) U/L Alkaline Phosphatase (38-126) U/L Total Protein (6.3-8.2) g/dL Albumin (3.5-5.0) g/dL Amylase (30-110) U/L Lipase (23-300) U/L Urine Color Urine Appearance (Clear) Urine pH (5.0-8.0) Ur Specific [place] (1.001-1.035) Urine Protein (Negative) Urine Glucose (UA) (Negative) Urine Ketones (Negative) Urine Blood (Negative) Urine Nitrite (Negative) Urine Bilirubin (Negative) Urine Urobilinogen (<2.0) mg/dL Ur Leukocyte Esterase (Negative) Urine RBC (0-5) /hpf Urine WBC (0-5) /hpf Ur Squamous Epith Cells (0-4) /hpf Urine Bacteria (None) /hpf Urine Mucus (None) /hpf Acetone, Qual (Negative) 07/22/23 Range/Units 12:32 WBC (3.8-10.6) k/uL RBC (4.30-5.90) m/uL Hgb (13.0-17.5) gm/dL Hct (39.0-53.0) % MCV (80.0-100.0) fL MCH (25.0-35.0) pg MCHC (31.0-37.0) g/dL RDW (11.5-15.5) % Plt Count (150-450) k/uL MPV Neutrophils % % Lymphocytes % % Monocytes % % Eosinophils % % Basophils % % Neutrophils # (1.3-7.7) k/uL Lymphocytes # (1.0-4.8) k/uL Monocytes # (0-1.0) k/uL Eosinophils # (0-0.7) k/uL Basophils # (0-0.2) k/uL Manual Slide Review RBC Morphology Sodium (137-145) mmol/L Potassium (3.5-5.1) mmol/L Chloride (98-107) mmol/L Carbon Dioxide (22-30) mmol/L Anion Gap mmol/L BUN (9-20) mg/dL Creatinine (0.66-1.25) mg/dL Est GFR (CKD-EPI)AfAm (>60 ml/min/1.73 sqM) Est GFR (CKD-EPI)NonAf (>60 ml/min/1.73 sqM) Glucose (74-99) mg/dL Lactic Ac Sepsis Rflx Plasma Lactic Acid Richard (0.7-2.0) mmol/L Calcium (8.4-10.2) mg/dL Magnesium (1.6-2.3) mg/dL Total Bilirubin (0.2-1.3) mg/dL AST (17-59) U/L ALT (4-49) U/L Alkaline Phosphatase (38-126) U/L Total Protein (6.3-8.2) g/dL Albumin (3.5-5.0) g/dL Amylase (30-110) U/L Lipase (23-300) U/L Urine Color Colorless Urine Appearance Clear (Clear) Urine pH 7.0 (5.0-8.0) Ur Specific [place] 1.019 (1.001-1.035) Urine Protein 1+ H (Negative) Urine Glucose (UA) 4+ H (Negative) Urine Ketones 3+ H (Negative) Urine Blood Negative (Negative) Urine Nitrite Negative (Negative) Urine Bilirubin Negative (Negative) Urine Urobilinogen <2.0 (<2.0) mg/dL Ur Leukocyte Esterase Negative (Negative) Urine RBC 2 (0-5) /hpf Urine WBC <1 (0-5) /hpf Ur Squamous Epith Cells <1 (0-4) /hpf Urine Bacteria Rare H (None) /hpf Urine Mucus Rare H (None) /hpf Acetone, Qual (Negative) Disposition Clinical Impression: Cyclic vomiting syndrome, Marijuana abuse, Hypomagnesemia Disposition: HOME SELF-CARE Condition: Good Instructions (If sedation given, give patient instructions): Acute Nausea and Vomiting (ED), Cyclic Vomiting Syndrome (ED) Prescriptions: Ondansetron [Zofran] 4 mg PO Q8HR PRN #10 tab PRN Reason: Nausea And Vomiting Is patient prescribed a controlled substance at d/c from ED?: No Referrals: Frederick Camejo MD [Primary Care Provider] - 1-2 days Time of Disposition: 14:14
[2023-07-22] MEDS: SODIUM CHLORIDE 0.9% 500 ML 500 ML IV STA (09:58)
[2023-07-22] MEDS: ONDANSETRON 4 MG/2 ML VIAL IVP STA (09:58)
[2023-07-22] MEDS: SODIUM CHLORIDE 0.9% 1,000 ML IV STA ×2 (09:58→11:18)
[2023-07-22] MEDS: droPERidol 5 MG/2 ML VIAL IVP ONE (10:39)
[2023-07-22 10:44] LABS: ALT 32 U/L (4-49); AST 21 U/L (17-59); African American GFR (CKD) >90 (>60 ml/min/1.73 sqM); Albumin 4.9 g/dL (3.5-5.0); Alkaline Phosphatase 168 U/L (38-126); Amylase 44 U/L (30-110); Anion Gap 20 mmol/L; Blood Urea Nitrogen 18 mg/dL (9-20); Carbon Dioxide 25 mmol/L (22-30); Chloride 95 mmol/L (98-107); Glucose 354 mg/dL (74-99); Lipase 74 U/L (23-300); Non-African American GFR(CKD) 87 (>60 ml/min/1.73 sqM); Potassium 4.1 mmol/L (3.5-5.1); Sodium 140 mmol/L (137-145); Total Bilirubin 1.1 mg/dL (0.2-1.3); Total Protein 8.4 g/dL (6.3-8.2)
[2023-07-22 10:52] LABS: Basophils % (A) 0 %; Eosinophils % (A) 0 %; HCT 49.6 % (39.0-53.0); HGB 16.2 gm/dL (13.0-17.5); Lymphocytes # (A) 0.9 k/uL (1.0-4.8); Lymphocytes % (A) 3 %; MCH 28.6 pg (25.0-35.0); MCHC 32.7 g/dL (31.0-37.0); MCV 87.4 fL (80.0-100.0); Monocytes # (A) 1.3 k/uL (0-1.0); Monocytes % (A) 5 %; Neutrophils # (A) 25.7 k/uL (1.3-7.7); Neutrophils % (A) 92 %; Platelet Count 335 k/uL (150-450); RBC 5.68 m/uL (4.30-5.90); RDW 14.1 % (11.5-15.5)
[2023-07-22 12:29] LABS: RBC Morphology Normal
[2023-07-22 12:51] LABS: Appearance,Urine Clear (Clear); Bacteria,Urine Rare /hpf; Bilirubin,Urine Negative (Negative); Blood,Urine Negative (Negative); Color,Urine Colorless; Glucose,Urine (UA) 4+ (Negative); Leukocyte Esterase,Urine Negative (Negative); Mucus,Urine Rare /hpf; Nitrite,Urine Negative (Negative); Protein,Urine 1+ (Negative); RBC,Urine 2 /hpf (0-5); Specific Gravity,Urine 1.019 (1.001-1.035); Squamous Epithelial Cell,Urine <1 /hpf (0-4); Urobilinogen,Urine <2.0 mg/dL (<2.0); WBC,Urine <1 /hpf (0-5)
[2023-07-22 12:52] LABS: Ketones,Urine 3+ (Negative)
[2023-07-22] MEDS: MAGNESIUM SULFATE-D5W PMX 1 GM in DEXTROSE/WATER 1 100ML.BAG IVPB SCH (14:04)
[2023-07-22 15:28] VITALS: RESP 16
[2023-07-22 17:25] VITALS: BP 162/102; PULSE 114
== END 2023-07-22 16:59 | disposition home or self-care (01) ==
LOC: EC 09:30
DX: E83.42 Hypomagnesemia (principal); F12.10 Cannabis abuse, uncomplicated; R11.15 Cyclical vomiting syndrome unrelated to migraine; Z88.8 Allergy status to other drugs, medicaments and biological substances
CPT/HCPCS: 36415; 93005; 80053; 82150; 82009; 83605; 83690; 83735; 85025; 81001; 99284; 96365; 96366 ×2; 96375 ×2; 96361 ×2; J2405; J3475; J1790